=== PATIENT | female | born 1990 | race African-American/Black ===

== ENCOUNTER 2020-02-04 11:09 | Emergency (ER) | payer OTHER ==
--- OUTSIDE RECORDS SUMMARY | 2020-02-04 11:11 | XMS REPORT | Clinical Summary ---
:1990 Author Organization [facility] Distr ict Address [address] [place] [address] Care Team Providers Name Role Phone Unavailable Primary Care Provider Unavailable Allergies Not on File Medications Not on file Active Problems Problem Noted Date Foot pain, left Social History Tobacco Use Types Packs/Day Years Used Date Never Assessed Sex Assigned at Date Recorded Not on file Last Filed Vital Signs Not on file Plan of Treatment Health Maintenance Due Date Last Done Comments Pap Cervical Cancer Scrn 2013 IMM Influenza Seasonal Nov to April (>/= 19 yrs) 11/19/2019 Results Not on fileafter 02/03/2019 Insurance Payer Benefit Plan / Subscriber ID Effective Dates Phone Addre ss Type Group [employer] SELF-PAY [id number] 2017-Prese [phone] SHIRA SELF-PAY UNSCREENED nt [address] [place] [address]
--- OUTSIDE RECORDS SUMMARY | 2020-02-04 11:11 | XMS REPORT | Continuity of Care Document ---
:1990 Author Organization [facility] t Address [address] [place] [place] [address] Care Team Providers Name Role Phone Maurizio Ugalde Attending Clinician Problems Condition Condition Condition Status Onset Resolution Last Treating Co mments Source Name Details Category Date Date Treatment Clinician Date Foot pain, Foot pain, Disease Active H arris left left Health Allergies, Adverse Reactions, Alerts This patient has no known allergies or adverse reactions. Social History Social Habit Start Date Stop Date Quantity Comments Source Sex Assigned At [facility] Medications This patient has no known medications. Procedures This patient has no known procedures. Plan of Care Planned Activity Planned Date Details Comments Source Future Scheduled Test 2019-11-19 00:00:00 IMM Influenza [facility] Seasonal Nov to April (>/= 19 yrs) [code = IMM Influenza Seasonal Nov to April (>/= 19 yrs)] Future Scheduled Test 2013 00:00:00 Screening for [facility] malignant neoplasm of cervix (procedure) [code = 276296153] Encounters Start End Encounter Admission Attending Care Care Encounter Source Date/Time Date/Time Type Type Clinicians Facility Department ID 2018-09-27 2018-09-27 Emergency Sree CAVINCE [id number] 15:27:09 17:14:00 Enoc Cruz [id number] [place] [id number] [place] [id number] 2017-10-31 2017-10-31 Outpatient [facility] [id number] [place] 15:00:36 15:00:36 Health 2017-10-31 2017-10-31 Emergency [facility] [id number] [place] 10:36:00 10:36:00 Health Results This patient has no known results.
[2020-02-04 11:44] LABS: Urine Specific Gravity 1.025 (1.005-1.030)
[2020-02-04 11:44] LABS: Urine Blood NEGATIVE (NEG); Urine Glucose NEGATIVE (NEG); Urine Protein 1+ (NEG); Urine Specific Gravity 1.025 (1.005-1.030)
[2020-02-04] MEDS ORDERED: ONDANSETRON 4 MG/2 ML VIAL ONE (12:20)
[2020-02-04] MEDS ORDERED: NA CHLORIDE 0.9% 1,000 ML ONE ×2 (12:20→13:54)
[2020-02-04] MEDS ORDERED: MORPHINE 4 MG/ML SYR ONE ×2 (12:20→13:54)
[2020-02-04 12:24] LABS: Urine Bacteria >50 /HPF (<20)
[2020-02-04 12:25] LABS: Urine Mucus HEAVY /HPF (NONE SEEN)
[2020-02-04 12:33] LABS: Absolute Lymphocytes (CBC) 2.6 K/uL (0.7-4.9); Basophils % 0.7 % (0-1.3); Hematocrit 48.4 % (36.0-45.0); Lymphocytes % 20.6 % (15.3-44.8); MPV 9.3 fL (7.6-11.3); RBC Red Blood Cell Count 5.23 M/uL (3.86-4.86)
[2020-02-04 13:09] LABS: Albumin 3.6 g/dL (3.4-5.0); Bilirubin Direct 0.1 mg/dL (0-0.2); Bilirubin Total 0.4 mg/dL (0.2-1.0); Protein, Total 7.9 g/dL (6.4-8.2)
[2020-02-04 13:11] LABS: Potassium 2.9 mmol/L (3.5-5.1)
--- NOTE | 2020-02-04 13:42 | RAD REPORT ---
EXAM DESCRIPTION: CT - Abdomen Pelvis W Contrast - 02/04/2020 1:25 pm CLINICAL HISTORY: ABD PAINin the epigastric region for 3 days, history of miscarriage 1 month earlie r COMPARISON: No comparisons TECHNIQUE: Biphasic, helical CT imaging of the abdomen and pelvis was performed following 100 ml non -ionic IV contrast. No oral contrast administered. All CT scans are performed using dose optimization technique as appropriate and may include automated exposure control or mA/KV adjustment according to patient size. FINDINGS: No suspicious findings in the lung bases. No cardiomegaly or pericardial effusion. The liver, spleen, and pancreas show no suspicious findings. Gallbladder and biliary tree are also wi thout suspicious finding. Symmetric renal function is seen with no hydronephrosis or suspicious renal mass. No pyelonephritis o r acute parenchymal process. Bladder is fully contracted limiting assessment. No uterine abnormality seen. No suspicious ovarian process identifiable. No adrenal abnormalities. Patient has a dilated fluid-filled stomach. The fundus and body of the stomach show no mass, edema or ulceration evident. Gastric antrum murguia are thickened and edematous. Duodenal bulb does not appear to be involved. More distally the duodenum is unremarkable. Small bowel loops are not dilated. No sydni les colon process seen. The appendix is normal. No free air or pneumatosis. Trace free fluid in the dependent portion of the pelvis within physiolo gic limits. No hernia, mass or bulky lymphadenopathy. No suspicious bony findings. IMPRESSION: Wall thickening and edema of the gastric antrum with the stomach dilated and fluid fille d. No obstructing mass seen. This is most likely gastric antritis. Duodenum does not appear to be involv ed. A focal gastric antrum ulceration is not identifiable. No pancreatic, gallbladder or biliary tree abnormality.
[2020-02-04] MEDS ORDERED: KCL 20 MEQ/100 mL IVPB 20 MEQ/100 ML BAG IV ONE (14:02)
[2020-02-04] MEDS ORDERED: PANTOPRAZOLE 40 MG INJ ONE (14:43)
[2020-02-04] MEDS ORDERED: LIDOCAINE VISCOUS 2% SOLN 15 ML UDC ONE (16:09)
[2020-02-04] MEDS ORDERED: MAGNES/ALUMIN/SIMET 30ML UCUP ONE (16:09)
--- NOTE | 2020-02-04 17:00 | EDPHYS ---
Physician Documentation [facility] Name: Nia Wills Age: 29 yrs Sex: Female : 1990 Arrival Date: 02/04/2020 Time: 11:10 Bed 2 Private MD: ED Physician Les Barragan HPI: 02/03 16:15 This 29 yrs old Black Female presents to ER via Ambulatory with complaints of Abdominal kdr Pain. 16:15 The patient presents with abdominal pain in the epigastric area, in the upper abdomen. kdr 16:17 Onset: The symptoms/episode began/occurred gradually, 3 day(s) ago. The symptoms do not kdr radiate. Associated signs and symptoms: Pertinent positives: nausea and vomiting, Pertinent negatives: constipation, diarrhea, dysuria, fever, headache, hematuria, palpitations, shortness of breath, vaginal discharge. The symptoms are described as achy, constant, crampy, sharp, steady. Modifying factors: The symptoms are alleviated by nothing, the symptoms are aggravated by drinking, food. Severity of pain: At its worst the pain was incapacitating in the emergency department the pain is unchanged. The patient has not experienced similar symptoms in the past. The patient has not recently seen a physician. The patient has, per her friend, trying to get off of synthetic marijuana without success. Now she is having persistent and relentless. 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 - Social history:: Smoking status: Patient reports the use of cigarette tobacco products, smokes one-half pack cigarettes per day. ROS: 17:51 Constitutional: Negative for fever, chills, and weight loss, Eyes: Negative for injury, kdr pain, redness, and discharge, Neck: Negative for injury, pain, and swelling, Cardiovascular: Negative for chest pain, palpitations, and edema, Respiratory: Negative for shortness of breath, cough, wheezing, and pleuritic chest pain, Back: Negative for injury and pain, : Negative for injury, bleeding, discharge, and swelling, MS/Extremity: Negative for injury and deformity, Skin: Negative for injury, rash, and discoloration, Neuro: Negative for headache, weakness, numbness, tingling, and seizure activity. Psych: Negative for depression, anxiety, suicide ideation, homicidal ideation, and hallucinations, Allergy/Immunology: Negative for hives, rash, and allergies, Endocrine: Negative for neck swelling, polydipsia, polyuria, polyphagia, and marked weight changes, Hematologic/Lymphatic: Negative for swollen nodes, abnormal bleeding, and unusual bruising. 17:51 Abdomen/GI: Positive for abdominal pain. Exam: 02/04 09:16 Constitutional: This is a well developed, well nourished patient who is awake, alert, kdr and in moderate distress. Head/Face: Normocephalic, atraumatic. Eyes: Pupils equal round and reactive to light, extra-ocular motions intact. Lids and lashes normal. Conjunctiva and sclera are non-icteric and not injected. Cornea within normal limits. Periorbital areas with no swelling, redness, or edema. Neck: Trachea midline, no thyromegaly or masses palpated, and no cervical lymphadenopathy. Supple, full range of motion without nuchal rigidity, or vertebral point tenderness. No Meningismus. Chest/axilla: Normal chest wall appearance and motion. Nontender with no deformity. No lesions are appreciated. Cardiovascular: Regular rate and rhythm with a normal S1 and S2. No gallops, murmurs, or rubs. Normal PMI, no JVD. No pulse deficits. Respiratory: Lungs have equal breath sounds bilaterally, clear to auscultation and percussion. No rales, rhonchi or wheezes noted. No increased work of breathing, no retractions or nasal flaring. Back: No spinal tenderness. No costovertebral tenderness. Full range of motion. Skin: Warm, dry with normal turgor. Normal color with no rashes, no lesions, and no evidence of cellulitis. MS/ Extremity: Pulses equal, no cyanosis. Neurovascular intact. Full, normal range of motion. Neuro: Awake and alert, GCS 15, oriented to person, place, time, and situation. Cranial nerves II-XII grossly intact. Motor strength 5/5 in all extremities. Sensory grossly intact. Cerebellar exam normal. Normal gait. Psych: Awake, alert, with orientation to person, place and time. Behavior, mood, and affect are within normal limits. Abdomen/GI: Inspection: Vital Signs: 02/03 11:20 BP 135 / 100; Pulse 65; Resp 17; Temp 98.2; Pulse Ox 100% ; Pain 10/10; jl7 12:20 BP 116 / 74; Pulse 50; Resp 19; Pulse Ox 100% ; rb3 13:18 BP 120 / 78; Pulse 53; Resp 17; Pulse Ox 100% ; rb3 14:18 BP 150 / 75; Pulse 47; Resp 16; Pulse Ox 100% ; bp 15:10 BP 123 / 65; Pulse 46; Resp 15; Pulse Ox 100% ; rb3 16:00 BP 126 / 88; Pulse 49; Resp 15; Pulse Ox 100% ; rb3 16:53 BP 128 / 84; Pulse 45; Resp 17; Pulse Ox 99% ; bp MDM: 17:00 Patient medically screened. kdr 02/04 09:21 Data reviewed: vital signs, nurses notes, lab test result(s), radiologic studies. kdr Counseling: I had a detailed discussion with the patient and/or guardian regarding: the historical points, exam findings, and any diagnostic results supporting the discharge/admit diagnosis, lab results, radiology results, the need for outpatient follow up. 02/03 11:35 Order name: Urine Dipstick--Ancillary (enter results); Complete Time: 13:13 bd 02/03 11:37 Order name: Urine --Ancillary (enter results); Complete Time: 13:13 bd 02/03 11:59 Order name: Basic Metabolic Panel; Complete Time: 13:13 bp 02/03 11:59 Order name: CBC with Diff; Complete Time: 13:13 bp 02/03 11:59 Order name: Hepatic Function; Complete Time: 13:13 bp 02/03 11:59 Order name: Lipase; Complete Time: 13:13 bp 02/03 12:00 Order name: Urine Culture bp 02/03 12:00 Order name: Urine Microscopic Only; Complete Time: 13:13 bp 02/03 12:10 Order name: CT Abd/Pelvis - IV Contrast Only; Complete Time: 13:45 kdr 02/03 11:59 Order name: IV Saline Lock; Complete Time: 12:16 bp 02/03 11:59 Order name: Labs collected and sent; Complete Time: 12: bp 02/03 15:09 Order name: PO challenge; Complete Time: 15:21 kdr Administered Medications: 02/03 12:05 Drug: morphine 4 mg Route: IVP; Site: right antecubital; bp 12:20 Follow up: Response: No adverse reaction; Pain is decreased rb3 12:10 Drug: NS 0.9% 1000 ml Route: IV; Rate: 1 bolus; Site: right antecubital; bp 17:18 Follow up: IV Status: Completed infusion; IV Intake: 1000ml bp 12:10 Drug: Zofran (Ondansetron) 4 mg Route: IVP; Site: right antecubital; bp 12:20 Follow up: Response: No adverse reaction; Nausea is decreased rb3 13:30 Drug: Potassium Chloride 20 mEq Route: IV; Rate: calculated rate; Site: right bp antecubital; 17:18 Follow up: IV Status: Completed infusion; IV Intake: 100ml bp 13:45 Drug: morphine 4 mg Route: IVP; Site: right antecubital; bp 14:18 Follow up: Response: No adverse reaction; Pain is decreased bp 14:30 Drug: ProTONIX 40 mg Route: IVP; Site: right antecubital; bp 15:21 Follow up: Response: No adverse reaction bp 15:58 Drug: GI Cocktail without - (Maalox Suspension 30 ml, Lidocaine Liquid 2 % 15 rb3 ml) Route: PO; 17:17 Follow up: Response: Pain is decreased bp Disposition: 02/04/20 17:00 Discharged to Home. Impression: Abdominal and pelvic pain, Gastric Anteritis. - Condition is Stable. - Prescriptions for Bentyl 20 mg Oral Tablet - take 1 tablet by ORAL route every 6 hours As needed; 20 tablet. Pepcid 20 mg Oral Tablet - take 1 tablet by ORAL route every 12 hours for 5 days; 10 tablet. Tramadol 50 mg Oral Tablet - take 1 tablet by ORAL route every 8 hours as needed; 12 tablet. - Medication Reconciliation Form, Thank You Letter, Prescription Opioid Use form. - Follow up: Private Physician; When: 2 - 3 days; Reason: If symptoms return, Further diagnostic work-up, Recheck today's complaints, Continuance of care, Re-evaluation by your physician. - Problem is an ongoing problem. - Symptoms have improved. Signatures: Dispatcher [employer] EDLes Cordero, MD MD kdr Carl Willard RN RN jl7 Nolberto Arango, RN RN bp Eduarda Meeks, RN RN rb3 Corrections: (The following items were deleted from the chart) 17:18 17:00 02/04/2020 17:00 Discharged to Home. Impression: Abdominal and pelvic pain; bp Gastric Anteritis. Condition is Stable. Forms are Medication Reconciliation Form, Thank You Letter, Antibiotic Education, Prescription Opioid Use. Follow up: Private Physician; When: 2 - 3 days; Reason: If symptoms return, Further diagnostic work-up, Recheck today's complaints, Continuance of care, Re-evaluation by your physician. Problem is an ongoing problem. Symptoms have improved. kdr
--- NOTE | 2020-02-04 17:00 | ER ---
Nurse's Notes [facility] Name: Nia Wills Age: 29 yrs Sex: Female : 1990 Arrival Date: 02/04/2020 Time: 11:10 Bed 2 Private MD: Diagnosis: Abdominal and pelvic pain;Gastric Anteritis Presentation: 02/03 11:20 Chief complaint: Patient states: Epigastric [pain since x3 days, worse this morning, jl7 N/V/D x 3 days, reports miscarriage about a month ago and not sure if this is related. Coronavirus screen: Client denies travel out of the [place] in the last 14 days. diarrhea, nausea, vomiting. Client presents with at least one sign or symptom that may indicate coronavirus-19. Standard/surgical mask placed on the client. Provider contacted for isolation considerations. Ebola Screen: No symptoms or risks identified at this time. Initial Sepsis Screen: Does the patient meet any 2 criteria? No. Patient's initial sepsis screen is negative. Does the patient have a suspected source of infection? No. Patient's initial sepsis screen is negative. Risk Assessment: Do you want to hurt yourself or someone else? Patient reports no desire to harm self or others. Onset of symptoms was February 02, 2020. Care prior to arrival: None. 11:20 Method Of Arrival: Ambulatory [facility] 11:20 Acuity: FERNANDO 3 jl7 Triage Assessment: 11:20 General: Appears distressed, uncomfortable, Behavior is cooperative, appropriate for bp age, anxious. Pain: Complains of pain in epigastric area. EENT: No deficits noted. Neuro: No deficits noted. Cardiovascular: No deficits noted. Respiratory: No deficits noted. GI: Abdomen is non-distended. : No signs and/or symptoms were reported regarding the genitourinary system. Derm: No deficits noted. Musculoskeletal: No deficits noted. 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 - Social history:: Smoking status: Patient reports the use of cigarette tobacco products, smokes one-half pack cigarettes per day. Screenin:30 Abuse screen: Denies threats or abuse. Denies injuries from another. Nutritional bp screening: No deficits noted. Tuberculosis screening: No symptoms or risk factors identified. Fall Risk None identified. Assessment: 11:20 General: SEE TRIAGE NOTE. bp 12:08 Reassessment: Pt. is vomiting, restless, and crying due to pain. Dr. Barragan notified. rb3 13:10 Reassessment: Patient appears in no apparent distress at this time. Patient and/or rb3 family updated on plan of care and expected duration. Pain level reassessed. Patient is alert, oriented x 3, equal unlabored respirations, skin warm/dry/pink. 14:19 Reassessment: Patient appears in no apparent distress at this time. No changes from bp previously documented assessment. Patient and/or family updated on plan of care and expected duration. Pain level reassessed. ALL CURRENT ORDERS COMPLETED. 15:10 Reassessment: Patient appears in no apparent distress at this time. Pt resting with rb3 eyes closed, respirations even, unlabored. 15:25 Reassessment: Pt. did not vomit after drinking the water for the PO challenge. rb3 15:55 Reassessment: Pt. reports that the water made her stomach hurt after she drank it. Dr. richi Barragan notified. 16:36 Reassessment: Patient appears in no apparent distress at this time. Patient and/or rb3 family updated on plan of care and expected duration. Pain level reassessed. Patient is alert, oriented x 3, equal unlabored respirations, skin warm/dry/pink. 16:53 Reassessment: Patient appears in no apparent distress at this time. Patient and/or bp family updated on plan of care and expected duration. Pain level reassessed. Patient is alert, oriented x 3, equal unlabored respirations, skin warm/dry/pink. PT SLEEPING, NO FURTHER EMESIS. 17:16 Reassessment: PT D/C HOME AMBULATORY WITH FAMILY, DX WITH GASTRIC ANTERITIS. bp Vital Signs: 11:20 BP 135 / 100; Pulse 65; Resp 17; Temp 98.2; Pulse Ox 100% ; Pain 10/10; jl7 12:20 BP 116 / 74; Pulse 50; Resp 19; Pulse Ox 100% ; rb3 13:18 BP 120 / 78; Pulse 53; Resp 17; Pulse Ox 100% ; rb3 14:18 BP 150 / 75; Pulse 47; Resp 16; Pulse Ox 100% ; bp 15:10 BP 123 / 65; Pulse 46; Resp 15; Pulse Ox 100% ; rb3 16:00 BP 126 / 88; Pulse 49; Resp 15; Pulse Ox 100% ; rb3 16:53 BP 128 / 84; Pulse 45; Resp 17; Pulse Ox 99% ; bp ED Course: 11:10 Patient arrived in ED. ag5 11:14 Les Barragan MD is Attending Physician. kdr 11:20 Arm band placed on right wrist. jl7 11:22 Triage completed. jl7 11:25 Nolberto Arango, SOPHIE is Primary Nurse. bp 11:30 Patient has correct armband on for positive identification. Bed in low position. Call bp light in reach. Side rails up X2. Adult w/ patient. 11:36 Urine collected: clean catch specimen, tea colored. 5 11:37 Urine Dipstick--Ancillary (enter results) Sent. 5 12:11 Inserted saline lock: 20 gauge in right antecubital area, using aseptic technique. rb3 Blood collected. 13:25 CT Abd/Pelvis - IV Contrast Only In Process Unspecified. EDMS 17:16 No provider procedures requiring assistance completed. IV discontinued, intact, bp bleeding controlled, No redness/swelling at site. Pressure dressing applied. Administered Medications: 12:05 Drug: morphine 4 mg Route: IVP; Site: right antecubital; bp 12:20 Follow up: Response: No adverse reaction; Pain is decreased rb3 12:10 Drug: NS 0.9% 1000 ml Route: IV; Rate: 1 bolus; Site: right antecubital; bp 17:18 Follow up: IV Status: Completed infusion; IV Intake: 1000ml bp 12:10 Drug: Zofran (Ondansetron) 4 mg Route: IVP; Site: right antecubital; bp 12:20 Follow up: Response: No adverse reaction; Nausea is decreased rb3 13:30 Drug: Potassium Chloride 20 mEq Route: IV; Rate: calculated rate; Site: right bp antecubital; 17:18 Follow up: IV Status: Completed infusion; IV Intake: 100ml bp 13:45 Drug: morphine 4 mg Route: IVP; Site: right antecubital; bp 14:18 Follow up: Response: No adverse reaction; Pain is decreased bp 14:30 Drug: ProTONIX 40 mg Route: IVP; Site: right antecubital; bp 15:21 Follow up: Response: No adverse reaction bp 15:58 Drug: GI Cocktail without - (Maalox Suspension 30 ml, Lidocaine Liquid 2 % 15 rb3 ml) Route: PO; 17:17 Follow up: Response: Pain is decreased bp Intake: 17:18 IV: 100ml; Total: 100ml. bp 17:18 IV: 1000ml; Total: 1100ml. bp Outcome: 17:00 Discharge ordered by . kdr 17:16 Discharged to home ambulatory, with family. bp 17:16 Condition: stable 17:16 Discharge instructions given to patient, Instructed on discharge instructions, follow up and referral plans. medication usage, Demonstrated understanding of instructions, follow-up care, medications, Prescriptions given X 3. 17:18 Patient left the ED. bp Signatures: Dispatcher [employer] EDMS Les Barragan MD MD kdr Martinez, Maria 5 Carl Willard, RN RN jl7 Nolberto Arango, SOPHIE RN bp Tran Zepeda 5 Eduarda Meeks, RN RN rb3
[2020-02-05 12:31] VITALS: TEMP 98.2
[2020-02-05 12:39] VITALS: BP 128/84; O2SAT 99
== END 2020-02-04 17:18 | disposition home or self-care (01) ==
LOC: ER 11:09
DX: K29.60 Other gastritis without bleeding (principal); F17.210 Nicotine dependence, cigarettes, uncomplicated; Z88.2 Allergy status to sulfonamides
CPT/HCPCS: 96365; 96361; 87088; 85025; 87086; 80048; 36415; 81025; 80076; 83690; 74177; 96375; 99284; 96366; Q9967; C9113; J3480; J7030 ×2; J2405; 81003; 81015

== ENCOUNTER 2020-04-10 03:41 | Emergency (ER) | payer OTHER ==
--- OUTSIDE RECORDS SUMMARY | 2020-04-10 03:46 | XMS REPORT | Clinical Summary ---
:1990 Author Organization [facility] Distr ict Address [address] [place] [address] Care Team Providers Name Role Phone Unavailable [...] 21 yrs) 11/19/2019 Results Not on fileafter 04/10/2019 Insurance Payer Benefit Plan / Subscriber ID Effective Dates Phone Addre ss Type Group [employer] SELF-PAY [id number] 2017-Prese [phone] [address] SELF-PAY UNSCREENED nt [address] [place] [address]
--- OUTSIDE RECORDS SUMMARY | 2020-04-10 03:46 | XMS REPORT | Continuity of Care Document ---
:1990 Author Organization [facility] t Address [address] [place] [address] Care Team Providers Name Role Phone Maurizio [...] Date Quantity Comments Source Sex Assigned At [facility] Medications This patient has no known medications. Procedures This patient has no known procedures. Plan of Care Planned Activity Planned Date Details Comments Source Future Scheduled Test 2019-11-19 00:00:00 IMM Influenza [facility] Seasonal Nov to April (>/= 19 yrs) [code = IMM Influenza Seasonal Nov to April (>/= 19 yrs)] Future Scheduled Test 2013 00:00:00 Screening for [facility] malignant neoplasm of cervix (procedure) [code = [id number]] Encounters Start End Encounter Admission Attending Care Care Encounter Source Date/Time Date/Time Type Type Clinicians Facility Department ID 2020-02-27 Inpatient E [facility] [id number] [facility] 02:20:00 2020-03-08 2020-03-08 Outpatient [facility] [id number] [facility] 05:22:00 05:22:00 2020-02-26 2020-02-26 Outpatient [facility] [id number] [facility] 12:55:00 12:55:00 2018-09-27 2018-09-27 Emergency [facility] [id number] 15:27:09 17:14:00 Enoc Cruz [id number] [place] [id number] [place] [id number] 2017-10-31 2017-10-31 Outpatient [facility] [id number] [place] 15:00:36 15:00:36 Health 2017-10-31 2017-10-31 Emergency [facility] [id number] [place] 10:36:00 10:36:00 Health Results This patient has no known results.
--- NOTE | 2020-04-10 04:13 | ER ---
Nurse's Notes [facility] Name: Nia Wills Age: 29 yrs Sex: Female : 1990 Arrival Date: 04/10/2020 Time: 03:46 Bed Waiting Private MD: Diagnosis: ED Course: 04/10 03:46 Patient arrived in ED. cf2 04:00 Patient's name was called from ER lobby. Unable to locate patient. Will disposition as lp1 left without being seen by a provider. Administered Medications: No medications were administered Outcome: 04:12 Patient left the ED. lp1 Signatures: Zeina Daly RN RN lp1 Christiano Sims cf2 Corrections: (The following items were deleted from the chart) 04:10 04:00 Patient's name was called from ER lobby. Unable to locate patient. Will lp1 disposition as left without being seen by a provider. lp1
== END 2020-04-10 04:12 | disposition left against medical advice (07) ==
LOC: ER 03:41
DX: Z02.9 Encounter for administrative examinations, unspecified (principal)

== ENCOUNTER 2020-06-19 16:26 | Emergency (ER) | payer OTHER ==
--- OUTSIDE RECORDS SUMMARY | 2020-06-19 16:29 | XMS REPORT | Continuity of Care Document ---
:1990 Author Organization [facility] t Address [address] [place] [address] Care Team Providers Name Role Phone VINCENT Attending Clinician Unavailable ADRIAN Attending Clinician Unavailable Maurizio Ugalde Attending Clinician Problems Condition Condition Condition Status Onset Resolution Last Treating Co mments Source Name Details Category Date Date Treatment Clinician Date Ankle Ankle Problem Active Univers pain, pain, ity of right right [place] Physici ans Personal Personal Problem Resolve Univ ers history of history of d it y of asthma asthma [place] Physici ans Chronic Chronic Problem Active Univers Infection Infection ity of Of Of [place] Amputation Amputation Ph ysici Stump Stump ans Pain, Pain, Problem Active Univers joint, joint, ity of ankle [place] ankle [place] foot foot Physici ans Bone spur Bone spur Problem Active Uni vers ity of [place] Physici ans Complicati Complicati Problem Active U nivers ons of ons of [place] of [place]putation [place] stump stump Physici ans Foot pain, Foot pain, Disease Active H arris left left Health Allergies, Adverse Reactions, Alerts This patient has no known allergies or adverse reactions. Social History Social Habit Start Date Stop Date Quantity Comments Source Sex Assigned At Tao ris [facility] Medications Ordered Filled Start Stop Current Ordering Indication Dosage Frequency Signature Comments Components Source Medication Medication Date Date Medication? Clinician (SIG) Name Name Naproxen Naproxen Yes CINDI 1 Q0.5D TAKE 1 Univers 500 MG Oral 500 MG Oral 3-17 CAMPBELL TABLET ity of Tablet Tablet 00:00: M.D. TWICE [place] 00 DAILY PRN Physici for pain ans Gabapentin Gabapentin Yes SIENA Q0.3333D TAKE 1 Univers 300 MG Oral 300 MG Oral 2-25 VINCENT CAPSULE 3 ity of Capsule Capsule 00:00: P.A. TIMES [place] 00 DAILY. Physici ans Cephalexin Cephalexin Yes MELITON Q0.3333D TAKE ONE Univers 500 MG Oral 500 MG Oral 9-25 KERLINE CAPSULE BY ity of Capsule Capsule 00:00: M.D. MOUTH [place] 00 THREE Physici TIMES ans DAILY FOR 10 DAYS Ritalin Ritalin Yes Univers TABS TABS 5-22 ity of 00:00: [place] 00 Physici ans Zoloft TABS Zoloft TABS Yes Univers 5-22 ity of 00:00: [place] 00 Physici ans Procedures Procedure Date / Time Performed Performing Clinician [facility] e [U] XRAY ANKLE MIN 3 2020-05-03 00:00:00 Univers [facility]y of [place] VWS RIGHT [id number] Physicians [U] XRAY TIBIA FIBULA 2020-05-03 00:00:00 [facility] [address]5431 Physicians Post Op Promis 29 2020-04-15 00:00:00 [facility] Survey Physicians Plan of Care Planned Activity Planned Date Details Comments Source Future Scheduled Test 2020-11-18 00:00:[address] [facility] Seasonal Nov to April (>/= 19 yrs) [code = IMM Influenza Seasonal Oct to April (>/= 19 yrs)] Future Scheduled Test 2013 00:00:[address] [facility] malignant neoplasm of cervix (procedure) [code = 133117032] Future Scheduled Test 2008 00:00:00 COVID-19 Vaccine (1) [facility] [code = COVID-19 Vaccine (1)] Encounters Start End Encounter Admission Attending Care Care Encounter Source Date/Time Date/Time Type Type Clinicians Facility Department ID 2020-02-27 Inpatient E [facility] [id number] [facility] H 02:20:00 2020-04-14 2020-04-14 [facility] [id number] Univers 09:30:00 09:30:00 t; SIENA, Trauma ity of [place] KAUR [facility] 2020-03-17 2020-03-17 Appointmen SANTOSH CAMPBELL [id number] Univers 08:45:00 08:45:00 t; CINDI CAMPBELL it y of [place], M.D. [place] M.D. Physici ans 2020-03-08 2020-03-08 Appointmen SANTOSH CAMPBELL [id number] Univers 07:30:00 07:30:00 t; CINDI CAMPBELL it y of [place], M.D. [place] M.D. Physici ans 2020-03-08 2020-03-08 Outpatient [facility] [id number] MH 05:22:00 05:22:00 2020-02-27 2020-02-27 Appointmen SANTOSH CAMPBELL [id number] Univers 07:30:00 07:30:00 t; CINDI CAMPBLEL it y of [place], M.D. [place] M.D. Physici ans 2020-02-26 2020-02-26 Outpatient MH MAGDY [id number] [facility] 12:55:00 12:55:00 2018-09-27 2018-09-27 Emergency [facility] [id number] 15:27:09 17:14:00 Enoc Cruz [id number] [place] [id number] [place] [id number] 2017-10-31 2017-10-31 Outpatient [facility] [id number] [place] 15:00:36 15:00:36 Health 2017-10-31 2017-10-31 Emergency [facility] [id number] [place] 10:36:00 10:36:00 Health Results Test Description Test Time Test Comments Results Result Sour e Comments [U] XRAY TIBIA 2020-04-14 Images University of [place] 2 [place] LEFT 11:01:00 [place] [id number] reported on Physicians this accession number. [U] XRAY ANKLE 2020-04-14 Images University of MIN 3 VWS RIGHT 10:19:00 acquired, not [place] [id number] reported on Physicians this accession number.
--- NOTE | 2020-06-19 17:07 | ER ---
Nurse's Notes [facility] Name: Nia Wills Age: 30 yrs Sex: Female : 1990 Arrival Date: 06/19/2020 Time: 16:27 Bed Waiting Private MD: Diagnosis: Presentation: 06/19 17:06 Note Eloped at 1645 per Zahra Registration. ca1 ED Course: 16:27 Patient arrived in ED. as Administered Medications: No medications were administered Outcome: 17:06 Patient left the ED. ca1 Signatures: Sangeetha Velez Cheryl, RN RN ca1
== END 2020-06-19 17:06 | disposition left against medical advice (07) ==
LOC: ER 16:26
DX: R69 Illness, unspecified (principal); Z53.21 Procedure and treatment not carried out due to patient leaving prior to being seen by health care provider

== ENCOUNTER 2020-08-06 11:44 | Emergency (ER) | payer OTHER ==
--- OUTSIDE RECORDS SUMMARY | 2020-08-06 11:49 | XMS REPORT | Continuity of Care Document ---
:1990 Author Organization [facility] t Address [address] [place] [address] Care Team Providers Name Role Phone Charlene Ceron MD Attending Clinician VINCENT Attending Clinician Unavailable ADRIAN Attending Clinician [...] spur Problem Active Uni vers [facility]y of [place] Physici ans Complicati Complicati Problem Active U [...] Clinician (SIG) Name Name Naproxen Naproxen Yes ICNDI 1 Q0.5D TAKE 1 Univers 500 MG [...] Procedure Date / Time Performed Performing Clinician [facility] e [U] XRAY ANKLE MIN 3 2020-05-03 00:00:00 Univers [facility] of [place] VWS RIGHT [address]62 Physicians [U] XRAY TIBIA FIBULA 2020-05-03 00:00:00 Univer sity [facility] 2 VWS LEFT 77163 Physicians Post Op Promis 29 2020-04-15 00:00:00 [facility] Survey Physicians Plan of Care Planned Activity Planned Date Details Comments Source Future Scheduled Test 2020-11-18 00:00:00 IMM Influenza [facility] Seasonal Oct to April (>/= 19 yrs) [code = IMM Influenza Seasonal Oct to April (>/= 19 yrs)] Future Scheduled Test 2013 00:00:00 Screening for [facility] malignant neoplasm of cervix (procedure) [code = 353795442] Future Scheduled Test 2004 00:00:00 COVID-19 Vaccine (1) [facility] [code = COVID-19 Vaccine (1)] Encounters Start End Encounter Admission Attending Care Care Encounter Source Date/Time Date/Time Type Type Clinicians Facility Department ID 2020-02-27 Inpatient E [facility] MED [id number] [facility] H 02:20:00 2020-06-19 2020-06-20 Emergency [facility] [id number] 20:37:00 00:12:00 No Charlene Nancy [id number] [place] [id number] [place] [id number] 2020-04-14 2020-04-14 Appointmen SANTOSH [facility] [id number] Univers 09:30:00 09:30:00 t; SIENA, Trauma ity of VINCENT P.[facility] Center 2020-03-17 2020-03-17 Appointmen SANTOSH CAMPBELL [facility] [id number] Univers 08:45:00 08:45:00 t; CINDI CAMPBELL it y of [place], M.D. [place] M.D. Physici ans 2020-03-08 2020-03-08 AppointSANTOSH Royal [id number] Univers 07:30:00 07:30:00 t; CINDI CAMPBELL it y of [place], M.D. [place] M.D. Physici ans 2020-03-08 2020-03-08 Outpatient [facility] [id number] [facility] 05:22:00 05:22:00 2020-02-27 2020-02-27 Appointmen SANTOSH CAMPBELL [facility] [id number] Univers 07:30:00 07:30:00 t; CINDI CAMPBELL it y of [place], M.D. [place] Physici ans 2020-02-26 2020-02-26 Outpatient [facility] MAGDY [id number] [facility] 12:55:00 12:55:00 2018-09-27 2018-09-27 Emergency [facility] [id number] 15:27:09 17:14:00 Enoc Cruz [id number] [place] [id number] [place] [id number] 2017-10-31 2017-10-31 Outpatient [facility] [id number] [place] 15:00:36 15:00:36 Health 2017-10-31 2017-10-31 Emergency [facility] [id number] [place] 10:36:00 10:36:00 Health Results Test Description Test Time Test Comments Results Result Sourc e Comments [U] XRAY TIBIA 2020-04-14 Images [facility] of [place] 2 VWS LEFT 11:01:00 [place] [id number] reported on Physicians this accession number. [U] XRAY ANKLE 2020-04-14 Images University of MIN 3 VWS RIGHT 10:19:00 acquired, not [place] [id number] reported on Physicians this accession number.
[2020-08-06] MEDS ORDERED: HYDROCODONE/APAP 5/325 MG TAB ONE (12:28)
--- NOTE | 2020-08-06 12:34 | RAD REPORT ---
EXAM DESCRIPTION: RAD - Ankle Right 3 View - 08/06/2020 12:20 pm CLINICAL HISTORY: Right ankle pain FINDINGS: Sideplate and screws affix the medial and lateral malleoli fractures. Oblique lucency within the distal tibia indicates that the fracture has not completely healed. Soft tissue swelling is evident. No acute fracture or dislocation seen. Lucency within the posterior calcaneus has a sclerotic border and probably is benign
--- NOTE | 2020-08-06 13:06 | EDPHYS ---
Physician Documentation [facility] Name: Nia Wills Age: 30 yrs Sex: Female : 1990 Arrival Date: 08/06/2020 Time: 11:49 Bed 20 Private MD: ED Physician Rena Ye HPI: 08/06 12:06 This 30 yrs old Black Female presents to ER via Wheelchair with complaints of Right pm1 ankle pain. 12:06 Onset: The symptoms/episode began/occurred 1 week(s) ago. Associated signs and pm1 symptoms: Pertinent negatives: fever, discharge. Modifying factors: The patient symptoms are alleviated by rest, the patient symptoms are aggravated by weight bearing. The patient has not experienced similar symptoms in the past. The patient has not recently seen a physician. Patient was carrying a window frame and then she accidentally dropped it on her right foot one week ago. Patient scratched the scab tissue on the medial aspect of her right ankle. Patient had an ankle fracture and repair in April 2020. Patient is also complaining of a callous to the medial aspect of her right heel. GRINDER LAP: 13:31 LMP 07/30/2020 zb Historical: - Allergies: 11:55 Sulfa (Sulfonamide Antibiotics); hb - PMHx: 11:55 High Blood Pressure; hb - Immunization history:: Adult Immunizations up to date. - Social history:: Smoking status: Patient denies any tobacco usage or history of. ROS: 12:06 Constitutional: Negative for fever, chills, and weight loss, Cardiovascular: Negative pm1 for chest pain, palpitations, and edema, Respiratory: Negative for shortness of breath, cough, wheezing, and pleuritic chest pain. 12:06 Neuro: Negative for headache, weakness, numbness, tingling, and seizure. 12:06 MS/extremity: Positive for abrasion, pain, of the right ankle, Negative for decreased range of motion, deformity. 12:06 Skin: Positive for abrasion(s), of the right ankle. 12:06 All other systems are negative. Exam: 12:06 Constitutional: This is a well developed, well nourished patient who is awake, alert, pm1 and in no acute distress. Head/Face: Normocephalic, atraumatic. 12:06 Cardiovascular: Rate: normal, Rhythm: regular, Pulses: no pulse deficits are appreciated. 12:06 Respiratory: Exam negative for acute changes, respiratory distress, shortness of breath. 12:06 Musculoskeletal/extremity: Extremities: grossly normal except: noted in the medial aspect of right ankle: abrasion, There is no evidence of decreased ROM. 12:06 Skin: Appearance: normal except for affected area, abscess, not appreciated, cellulitis, is not appreciated, injury, abrasion(s), small abrasion noted, of the medial aspect of right ankle, large cutaneous callous horn present to medial aspect of right heel. 12:06 Neuro: Orientation: is normal, Mentation: is normal, Motor: is normal, Sensation: is normal, no obvious gross deficits. Vital Signs: 11:53 BP 99 / 65; Pulse 102; Resp 18; Temp 98.1; Pulse Ox 98% on R/A; Pain 7/10; hb 13:30 BP 98 / 62; Pulse 84; Resp 16; Pulse Ox 100% on R/A; zb MDM: 11:57 Patient medically screened. pm1 13:01 Data reviewed: vital signs. Data interpreted: Pulse oximetry: on room air is 98 %. pm1 Interpretation: normal. 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 13:02 ED course: BLADE GROOVER aware reviewed. pm1 08/06 12:04 Order name: Ankle Right 3 View XRAY; Complete Time: 12:49 pm1 Administered Medications: 12:14 Drug: [place] (HYDROcodone-acetaminophen) 5 mg-325 mg 1 tabs {Note: RASS +0.} Route: PO; zb 13:23 Follow up: Response: No adverse reaction; Marked relief of symptoms; Pain is decreased; zb RASS: Alert and Calm (0) Disposition: 14:47 Co-signature as Attending Physician, Rena Ye MD. ma2 Disposition: 08/06/20 13:06 Discharged to Home. Impression: Abrasion, left ankle, Corns and callosities. - Condition is Stable. - Discharge Instructions: Abrasion, Corns and Calluses. - Prescriptions for Bactroban 2 % Topical Ointment - Apply to affected area 1 application by TOPICAL route every 12 hours; 30 gram. Doxycycline Hyclate 100 mg Oral Tablet - take 1 tablet by ORAL route every 12 hours; 20 tablet. Tylenol- Codeine #3 300-30 mg Oral Tablet - take 2 tablets by ORAL route every 4-6 hours As needed; 20 tablet. - Medication Reconciliation Form, Thank You Letter, Antibiotic Education, Prescription Opioid Use form. - Follow up: Emergency Department; When: As needed; Reason: Worsening of condition. Follow up: Private Physician; When: 2 - 3 days; Reason: Recheck today's complaints, Continuance of care, Re-evaluation by your physician. - Problem is new. - Symptoms have improved. Signatures: Dispatcher [employer] EDMS Richard Cary NP WET SUIT GLUER pm1 So Adair RN RN Rena Ye MD MD ma2 Maria Alejandra Ivan RN RN zb Corrections: (The following items were deleted from the chart) 13:07 13:06 08/06/2020 13:06 Discharged to Home. Impression: Corns and callosities; Abrasion, pm1 left ankle. Condition is Stable. Forms are Medication Reconciliation Form, Thank You Letter, Antibiotic Education, Prescription Opioid Use. Follow up: Emergency Department; When: As needed; Reason: Worsening of condition. Follow up: Private Physician; When: 2 - 3 days; Reason: Recheck today's complaints, Continuance of care, Re-evaluation by your physician. Problem is new. Symptoms have improved. pm1 13:31 13:07 08/06/2020 13:06 Discharged to Home. Impression: Abrasion, left ankleCorns and zb callosities. Condition is Stable. Forms are Medication Reconciliation Form, Thank You Letter, Antibiotic Education, Prescription Opioid Use. Follow up: Emergency Department; When: As needed; Reason: Worsening of condition. Follow up: Private Physician; When: 2 - 3 days; Reason: Recheck today's complaints, Continuance of care, Re-evaluation by your physician. Problem is new. Symptoms have improved. pm1
--- NOTE | 2020-08-06 13:06 | ER ---
Nurse's Notes [facility] Name: Nia Wills Age: 30 yrs Sex: Female : 1990 Arrival Date: 08/06/2020 Time: 11:49 Bed 20 Private MD: Diagnosis: Corns and callosities;Abrasion, left ankle Presentation: 08/06 11:53 Chief complaint: Right ankle pain after she dropped a window on it 1 week ago. Reports right ankle surgery in April. Coronavirus screen: At this time, the client does not indicate any symptoms associated with coronavirus-19. Ebola Screen: No symptoms or risks identified at this time. Initial Sepsis Screen: Does the patient meet any 2 criteria? No. Patient's initial sepsis screen is negative. Does the patient have a suspected source of infection? No. Patient's initial sepsis screen is negative. Risk Assessment: Do you want to hurt yourself or someone else? Patient reports no desire to harm self or others. Onset of symptoms was July 30, 2020. 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 - Social history:: Smoking status: Patient denies any tobacco usage or history of. Screenin:04 Abuse screen: Denies threats or abuse. Denies injuries from another. Nutritional zb screening: No deficits noted. Tuberculosis screening: No symptoms or risk factors identified. Fall Risk No fall in past 12 months (0 pts). Secondary diagnosis (15 points) impaired mobility, No IV (0 pts). Ambulatory Aid- Crutches/Cane/Walker (15 pts). Gait- Normal/Bed Rest/Wheelchair (0 pts) Mental Status- Oriented to own ability (0 pts). Total Ge Fall Scale indicates Low Risk Score (25-44 pts). Fall prevention measures have been instituted. Side Rails Up X 2 Placed close to Nursing Station Frequent Obs/Assesments occuring Family Present and informed to notify staff if they need to leave bedside As available Patient and Family Educated on Fall Prevention Program and strategies. Assessment: 12:24 General: Appears in no apparent distress. comfortable, Behavior is calm, cooperative, zb appropriate for age. Pain: Complains of pain in anterior aspect of right ankle and dorsum of right foot Pain currently is 8 out of 10 on a pain scale. Neuro: Level of Consciousness is awake, alert, obeys commands, Oriented to person, place, time, situation. Cardiovascular: Heart tones S1 S2 present Patient's skin is warm and dry. Respiratory: Airway is patent. Derm: Wound noted anterior aspect of right ankle and dorsum of right foot Wound is two serous sanguinous abrasion about nickel size. minimal drainage. Bruising that is dark purple, on right osborn and anterior aspect of right ankle. Musculoskeletal: Range of motion: intact in all extremities. 13:30 Reassessment: Patient appears in no apparent distress at this time. Patient and/or zb family updated on plan of care and expected duration. Pain level reassessed. Patient is alert, oriented x 3, equal unlabored respirations, skin warm/dry/pink. pain reduced 4/10. patient wheeled out by SO Patient states feeling better. Patient states symptoms have improved. Vital Signs: 11:53 BP 99 / 65; Pulse 102; Resp 18; Temp 98.1; Pulse Ox 98% on R/A; Pain 7/10; hb 13:30 BP 98 / 62; Pulse 84; Resp 16; Pulse Ox 100% on R/A; zb ED Course: 11:49 Patient arrived in ED. ds1 11:55 Triage completed. hb 11:55 Arm band placed on. hb 11:57 Richard Cary NP is PHCP. pm1 11:57 Rena Ye MD is Attending Physician. pm1 12:03 Maria Alejandra Ivan RN is Primary Nurse. zb 12:20 Ankle Right 3 View XRAY In Process Unspecified. EDMS 12:31 Patient has correct armband on for positive identification. Placed in gown. Bed in low zb position. Call light in reach. Pulse ox on. NIBP on. Door closed. Noise minimized. 13:30 No provider procedures requiring assistance completed. Patient did not have IV access zb during this emergency room visit. Administered Medications: 12:14 Drug: [place] (HYDROcodone-acetaminophen) 5 mg-325 mg 1 tabs {Note: RASS +0.} Route: PO; zb 13:23 Follow up: Response: No adverse reaction; Marked relief of symptoms; Pain is decreased; sun RASS: Alert and Calm (0) Outcome: 13:06 Discharge ordered by . pm1 13:30 Discharged to home ambulatory. zb 13:30 Condition: stable 13:30 Discharge instructions given to patient, significant other, Instructed on discharge instructions, follow up and referral plans. medication usage, Demonstrated understanding of instructions, follow-up care, medications, Prescriptions given X 3. 13:31 Patient left the ED. sun Signatures: Dispatcher [employer] EDTN Amarilys Clay ds1 Richard Cary NP FASHION ARTIST pm1 So Adair, RN Maria Alejandra Haynes RN RN zb
[2020-08-06 13:39] VITALS: TEMP 98.1
[2020-08-06 13:40] VITALS: BP 98/62; O2SAT 100
== END 2020-08-06 13:31 | disposition home or self-care (01) ==
LOC: ER 11:44
DX: L84 Corns and callosities (principal); Z88.2 Allergy status to sulfonamides
CPT/HCPCS: 99284

== ENCOUNTER 2020-08-28 12:38 | Emergency (ER) | payer OTHER ==
--- OUTSIDE RECORDS SUMMARY | 2020-08-28 12:42 | XMS REPORT | Continuity of Care Document ---
:1990 Author Organization [facility] t Address [address] [place] [address] Care Team Providers Name Role Phone Olvera Attending Clinician Osmany ADAM S Attending Clinician VINCENT Attending Clinician Unavailable ADRIAN [...] Date Quantity Comments Source Sex Assigned At [facility] Health Medications Ordered Filled Start Stop Current [...] Procedure Date / Time Performed Performing Clinician [facility] e [U] XRAY ANKLE MIN 3 2020-05-03 00:00:00 [facility] [place] VWS RIGHT [address] Physicians [U] XRAY TIBIA FIBULA 2020-05-03 00:00:00 Univer sity [facility] 2 VWS LEFT [address] Physicians Post Op Promis 29 2020-04-15 00:00:00 [facility] Survey Physicians Plan of Care Planned Activity Planned Date Details Comments Source Future Scheduled Test 2020-11-18 00:00:00 IMM Influenza [facility] Seasonal Oct to April (>/= 19 yrs) [code = IMM Influenza Seasonal Oct to April (>/= 19 yrs)] Future Scheduled Test 2013 00:00:00 Screening for [facility] malignant neoplasm of cervix (procedure) [code = 318254039] Future Scheduled Test 2004 00:00:00 COVID-19 Vaccine (1) [facility] [code = COVID-19 Vaccine (1)] Encounters Start End Encounter Admission Attending Care Care Encounter Source Date/Time Date/Time Type Type Clinicians Facility Department ID 2020-02-[address] [facility] MED [id number] [facility] H 02:20:00 2020-08-19 2020-08-19 Emergency , [facility] [id number] 20:28:00 20:51:00 Julio C Cruz [id number] [place] [id number] [place] [id number] 2020-06-19 2020-06-20 Emergency [place], [facility] [id number] 20:37:00 00:12:00 No Cruz [id number] [place] [id number] [place] [id number] 2020-04-14 2020-04-14 Appointmen SANTOSH [facility] 7 [id number] Univers 09:30:00 09:30:00 t; SIENA, Trauma ity VINCENT P.A. [facility] 2020-03-17 2020-03-17 Appointmen SANTOSH CAMPBELL [id number] Univers 08:45:00 08:45:00 t; CINDI CAMPBELL it y of [place], M.D. [place] M.D. Physici ans 2020-03-08 2020-03-08 AppointSANTOSH Royal [id number] Univers 07:30:00 07:30:00 t; CINDI CAMPBELL it y of [place], M.D. [place] M.D. Physici ans 2020-03-08 2020-03-[address] [facility] [id number] M[facility] 05:22:00 05:22:00 2020-02-27 2020-02-27 Appointmen SANTOSH CAMPBELL [id number] Univers 07:30:00 07:30:00 t; CINDI CAMPBELL it y of [place], M.D. [place] M.D. Physici ans 2020-02-26 2020-02-26 Outpatient [facility] MAGDY [id number] [facility] 12:55:00 12:55:00 2018-09-27 2018-09-27 Emergency Sree, [facility] [id number] 15:27:09 17:14:00 Enoc A [place] [id number] [place] [id number] [place] [id number] 2017-10-31 2017-10-[address] [facility] [id number] [place] 15:00:36 15:00:36 Health 2017-10-31 2017-10-31 Emergency [facility] [id number] [place] 10:36:00 10:36:00 Health Results Test Description Test Time Test Comments Results Result Sourc e Comments [U] XRAY TIBIA 2020-04-14 Images [facility] [place] 2 VWS LEFT 11:01:00 [place] [id number] reported on Physicians this accession number. [U] XRAY ANKLE 2020-04-14 Images University of MIN 3 VWS RIGHT 10:19:00 acquired, not [place] [id number] reported on Physicians this accession number.
[2020-08-28] MEDS ORDERED: HYDROCODONE/APAP 5/325 MG TAB ONE (13:55)
[2020-08-28 14:02] LABS: Absolute Lymphocytes (CBC) 2.7 K/uL (0.7-4.9); Basophils % 1.1 % (0-1.3); Hematocrit 43.6 % (36.0-45.0); Lymphocytes % 33.7 % (15.3-44.8); MPV 8.5 fL (7.6-11.3); RBC Red Blood Cell Count 4.96 M/uL (3.86-4.86)
--- NOTE | 2020-08-28 14:06 | RAD REPORT ---
EXAM DESCRIPTION: RAD - Ankle Right 3 View - 08/28/2020 1:55 pm CLINICAL HISTORY: Right ankle pain FINDINGS: Sideplate and screws affix medial and lateral malleolar fractures. No acute fracture or dislocation is seen. Marked medial soft tissue swelling. No bony destructive lesion is seen. Lucency with a sclerotic border within the posterior calcaneus may represent a cyst or lipoma. It lik ning is benign. This can be monitored on follow-up x-ray
[2020-08-28 14:14] LABS: BUN Blood Urea Nitrogen 12 mg/dL (7-18); Bicarbonate 30 mmol/L (21-32); Glucose Level 89 mg/dL (74-106); Potassium 3.9 mmol/L (3.5-5.1); Sodium Level 140 mmol/L (136-145)
--- NOTE | 2020-08-28 14:52 | EDPHYS ---
Physician Documentation [facility] Name: Nia Wills Age: 30 yrs Sex: Female : 1990 Arrival Date: 08/28/2020 Time: 12:42 Bed 23 Private MD: ED Physician Anam Cox HPI: 08/28 13:27 This 30 yrs old Black Female presents to ER via Wheelchair with complaints of Ankle pm1 Pain, Foot Pain, Post Surgical Pain. 13:27 The patient presents with pain, that is chronic. The complaints affect the right leg pm1 and right ankle. Context: Patient with chronic pain to right ankle and foot post trimalleolar fracture and surgery in February of this year. Patient reports swelling to right medial ankle. Onset: The symptoms/episode began/occurred swelling present to right ankle since fracture and surgery. Modifying factors: The symptoms are alleviated by elevating leg, the symptoms are aggravated by weight bearing. Associated signs and symptoms: Pertinent negatives calf tenderness, numbness, tingling. Treatment prior to arrival includes: no previous treatment. Severity of symptoms: in the emergency department the symptoms have improved. The patient has not recently seen a physician, Has not followed up with the surgeon. 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 - Social history:: Smoking status: Patient reports the use of cigarette tobacco products, smokes one-half pack cigarettes per day. ROS: 13:27 Constitutional: Negative for fever, chills, and weight loss, Cardiovascular: Negative pm1 for chest pain, palpitations, and edema, Respiratory: Negative for shortness of breath, cough, wheezing, and pleuritic chest pain, Abdomen/GI: Negative for abdominal pain, nausea, vomiting, diarrhea, and constipation, Back: Negative for injury and pain. 13:27 Neuro: Negative for headache, weakness, numbness, tingling, and seizure. 13:27 MS/extremity: Positive for pain, swelling, tenderness, of the medial aspect of right ankle, Negative for decreased range of motion, deformity. 13:27 Skin: Positive for swelling, of the medial aspect of right ankle, Negative for abscesses, cellulitis, ecchymosis. 13:27 All other systems are negative. Exam: 13:27 Constitutional: This is a well developed, well nourished patient who is awake, alert, pm1 and in no acute distress. Head/Face: Normocephalic, atraumatic. 13:27 Skin: Warm, dry with normal turgor. Normal color with no rashes, no lesions, and no evidence of cellulitis. 13:27 Eyes: Exam is negative for acute changes, Extraocular movements: intact throughout, Conjunctiva: no acute changes, no injection. 13:27 Cardiovascular: Exam negative for acute changes, Rate: normal, Rhythm: regular, Pulses: no pulse deficits are appreciated. 13:27 Respiratory: Exam negative for acute changes, respiratory distress, shortness of breath. 13:27 Musculoskeletal/extremity: Exam is negative for acute changes, Extremities: grossly normal except: noted in the medial aspect of right ankle: swelling, tenderness, There is no evidence of ecchymosis, cellulitis, abscess, drainage, Sensation intact. 13:27 Neuro: Exam negative for acute changes, Orientation: is normal, Mentation: is normal, Motor: is normal, moves all fours. Vital Signs: 12:59 BP 116 / 78; Pulse 82; Resp 18 S; Temp 97.6(TE); Pulse Ox 100% on R/A; Weight 65.77 kg ca1 (R); Height 5 ft. 3 in. (160.02 cm) (R); Pain 10/10; 14:02 BP 113 / 59; Pulse 89; Resp 16; Pulse Ox 99% on R/A; zb 14:54 BP 102 / 87; Pulse 65; Resp 16; Pulse Ox 100% on R/A; zb 12:59 Body Mass Index 25.69 (65.77 kg, 160.02 cm) ca1 MDM: 13:18 Patient medically screened. pm1 14:49 ED course: PMPaware reviewed. Last prescription for pain 08/06/2020. pm1 14:49 ED course: Discussed with patient the need to follow up with the orthopedic surgeon pm1 that performed the surgery and pain management. 14:49 Counseling: I had a detailed discussion with the patient and/or guardian regarding: the pm1 historical points, exam findings, and any diagnostic results supporting the discharge/admit diagnosis, lab results, radiology results, the need for outpatient follow up, to return to the emergency department if symptoms worsen or persist or if there are any questions or concerns that arise at home. 14:49 Data reviewed: vital signs. Data interpreted: Pulse oximetry: on room air is 100 %. pm1 Interpretation: normal. 08/28 13:26 Order name: CBC with Diff pm1 08/28 13:26 Order name: BMP pm1 08/28 13:25 Order name: Ankle Right 3 View XRAY; Complete Time: 14:15 pm1 08/28 13:27 Order name: CBC with Automated Diff; Complete Time: 14:15 EDMS 08/28 13:27 Order name: Basic Metabolic Panel; Complete Time: 14:15 EDMS 08/28 13:26 Order name: IV Saline Lock; Complete Time: 13:59 pm1 Administered Medications: 13:38 Drug: HYDROcodone-acetaminophen 5 mg-325 mg 1 tabs {Note: RASS +1.} Route: PO; zb 14:54 Follow up: Response: No adverse reaction; Marked relief of symptoms; Pain is decreased; zb RASS: Alert and Calm (0) Disposition Summary: 08/28/20 14:51 Discharge Ordered Location: Home pm1 Problem: new pm1 Symptoms: have improved pm1 Condition: Stable pm1 Diagnosis - Pain in right ankle and joints of right foot pm1 Followup: pm1 - With: Emergency Department - When: As needed - Reason: Worsening of condition Followup: pm1 - With: Private Physician - When: 2 - 3 days - Reason: Recheck today's complaints, Continuance of care, Re-evaluation by your physician Discharge Instructions: - Discharge Summary Sheet pm1 - Ankle Pain pm1 Forms: - Medication Reconciliation Form pm1 - Thank You Letter pm1 - Antibiotic Education pm1 - Prescription Opioid Use pm1 Prescriptions: - mupirocin 2 % Topical ointment - apply 1 application by TOPICAL route every 8 hours for 5 days; 1 tube; Refills: pm1 0, Product Selection Permitted - Doxycycline Hyclate 100 mg Oral Tablet - take 1 tablet by ORAL route every 12 hours; 20 tablet; Refills: 0, Product pm1 Selection Permitted - acetaminophen-codeine 300-15 mg Oral tablet - take 2 tablet by ORAL route every 6 hours As needed as needed; 20 tablet; pm1 Refills: 0, Product Selection Permitted Signatures: Dispatcher [employer] Richard Ellsworth, BANK CREDIT CARD COLLECTION CLERK BANK CREDIT CARD COLLECTION CLERK pm1 Praveena Walker, RN RN Maria Alejandra Loaiza RN RN sun
--- NOTE | 2020-08-28 14:52 | ER ---
Nurse's Notes [facility] Name: Nia Wills Age: 30 yrs Sex: Female : 1990 Arrival Date: 08/28/2020 Time: 12:42 Bed 23 Private MD: Diagnosis: Pain in right ankle and joints of right foot Presentation: 08/28 12:59 Chief complaint: Patient states: Had multiple R foot and R ankle surgery on the R on ca1 02/26/2020. My R inner ankle is not healing. Been Red, swollen, now it feels hot to touch. Denies fever. Coronavirus screen: Client denies travel out of the [place] in the last 14 days. At this time, the client does not indicate any symptoms associated with coronavirus-19. Ebola Screen: Patient negative for fever greater than or equal to 101.5 degrees Fahrenheit, and additional compatible Ebola Virus Disease symptoms Patient denies exposure to infectious person. Patient denies travel to an Ebola-affected area in the 21 days before illness onset. No symptoms or risks identified at this time. Initial Sepsis Screen: Does the patient meet any 2 criteria? No. Patient's initial sepsis screen is negative. Does the patient have a suspected source of infection? No. Patient's initial sepsis screen is negative. Risk Assessment: Do you want to hurt yourself or someone else? Patient reports no desire to harm self or others. Onset of symptoms was August 28, 2020. 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 - Social history:: Smoking status: Patient reports the use of cigarette tobacco products, smokes one-half pack cigarettes per day. Screenin:00 Abuse screen: Denies threats or abuse. Denies injuries from another. Nutritional zb screening: No deficits noted. Tuberculosis screening: No symptoms or risk factors identified. Fall Risk No fall in past 12 months (0 pts). Secondary diagnosis (15 points) impaired mobility, IV access (20 points). Ambulatory Aid- None/Bed Rest/Nurse Assist (0 pts). Gait- Impaired (20 pts.). Mental Status- Oriented to own ability (0 pts). Total Ge Fall Scale indicates Low Risk Score (25-44 pts). Fall prevention measures have been instituted. Side Rails Up X 2 Placed close to Nursing Station Frequent Obs/Assesments occuring Family Present and informed to notify staff if they need to leave bedside As available Patient and Family Educated on Fall Prevention Program and strategies. Assessment: 14:00 General: Appears in no apparent distress. uncomfortable, Behavior is calm, cooperative, zb appropriate for age. Pain: Complains of pain in right ankle and medial aspect of right foot Pain currently is 10 out of 10 on a pain scale. Quality of pain is described as sharp, tender, Pain began Feb 2020 Is continuous, Aggravated by increased activity, weight bearing. Neuro: Level of Consciousness is awake, alert, obeys commands, Oriented to person, place, time. Cardiovascular: Patient's skin is warm and dry. Respiratory: Airway is patent Respiratory effort is even, unlabored, Respiratory pattern is regular, symmetrical. Derm: Skin is intact, boil located on right medial side of leg. Musculoskeletal: Range of motion: intact in all extremities. 15:13 Reassessment: Patient appears in no apparent distress at this time. Patient and/or zb family updated on plan of care and expected duration. Pain level reassessed. Patient is alert, oriented x 3, equal unlabored respirations, skin warm/dry/pink. d/c instructions given. pain management list provided. right leg forrest wrapped. patient wheeled out by family. no c/o at this time. Vital Signs: 12:59 BP 116 / 78; Pulse 82; Resp 18 S; Temp 97.6(TE); Pulse Ox 100% on R/A; Weight 65.77 kg ca1 (R); Height 5 ft. 3 in. (160.02 cm) (R); Pain 10/10; 14:02 BP 113 / 59; Pulse 89; Resp 16; Pulse Ox 99% on R/A; zb 14:54 BP 102 / 87; Pulse 65; Resp 16; Pulse Ox 100% on R/A; zb 12:59 Body Mass Index 25.69 (65.77 kg, 160.02 cm) ca1 ED Course: 12:42 Patient arrived in ED. bp1 13:01 Triage completed. ca1 13:02 Arm band placed on right wrist. ca1 13:10 Richard Cary NP is PHCP. pm1 13:10 Anam Cox MD is Attending Physician. pm1 13:29 Maria Alejandra Ivan, SOPHIE is Primary Nurse. zb 13:54 Ankle Right 3 View XRAY In Process Unspecified. EDMS 14:02 Patient has correct armband on for positive identification. Pulse ox on. NIBP on. Door zb closed. Noise minimized. PO fluids given. 14:02 Inserted saline lock: 20 gauge in right antecubital area, using aseptic technique. zb Blood collected. 14:54 No provider procedures requiring assistance completed. IV discontinued, intact, zb bleeding controlled, No redness/swelling at site. Pressure dressing applied. Administered Medications: 13:38 Drug: HYDROcodone-acetaminophen 5 mg-325 mg 1 tabs {Note: RASS +1.} Route: PO; zb 14:54 Follow up: Response: No adverse reaction; Marked relief of symptoms; Pain is decreased; zb RASS: Alert and Calm (0) Outcome: 14:51 Discharge ordered by MD. pm1 14:55 Discharged to home via wheelchair. zb 14:55 Condition: stable 14:55 Discharge instructions given to patient, family, Instructed on discharge instructions, follow up and referral plans. Demonstrated understanding of instructions, follow-up care. 15:14 Patient left the ED. zb Signatures: Dispatcher [employer] EDIN Richard Cary NP DIE CUTTER pm1 Praveena Walker RN RN ca1 Zaida Garner bp1 Maria Alejandra Ivan RN RN zb Corrections: (The following items were deleted from the chart) 13:02 12:59 Chief complaint: Patient states: Had multiple foot and ankle surgery on the R on ca1 02/26/2020. My R inner ankle is not healing. Been Red, swollen, now it feels hot to touch. Denies fever. ca1 13:03 13:02 LMP 07/30/2020 ca1 ca1
[2020-08-28 15:26] VITALS: TEMP 97.6
[2020-08-28 15:29] VITALS: BP 102/87; O2SAT 100
== END 2020-08-28 15:14 | disposition home or self-care (01) ==
LOC: ER 12:38
DX: M25.571 Pain in right ankle and joints of right foot (principal); I10 Essential (primary) hypertension; F17.210 Nicotine dependence, cigarettes, uncomplicated; Z88.2 Allergy status to sulfonamides
CPT/HCPCS: 36415; 80048; 85025; 99284

== ENCOUNTER 2022-01-18 17:13 | Emergency (ER) | payer OTHER ==
--- OUTSIDE RECORDS SUMMARY | 2022-01-18 17:18 | XMS REPORT | Continuity of Care Document ---
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 8:07:00 ADMISSIONS EVALUATOR, Duration: 2 doses or times, Stop date: Limited # of times Labetalol 0 No 10 mg, Memori a 02-26 Route: l 14:07: IVP, Vlad 00 Q5Min, Dosing Weight 56.7, kg, PRN Elevated BP, Start date: 02/27/20 8:07:00 ADMISSIONS EVALUATOR, Duration: 5 doses or times, Stop date: Limited # of times Acetaminoph 2020-0 No 1,000 mg, M emoria en 02-26 Route: PO, l 14:07: Drug form: Vlad 00 TAB, ONCE, Dosing Weight 56.7, kg, PRN Pain Score 1-3, Start date: 02/27/20 8:07:00 ADMISSIONS EVALUATOR Oxycodone 2020-0 No 5 mg, Memoria Hydrochlori 02-26 Route: PO, l de 5 MG 14:07: Drug form: Herm zeynep Oral Tablet 00 TAB, Q4H, Dosing Weight 56.7, kg, PRN Pain Score 4-6, Start date: 02/27/20 8:07:00 ADMISSIONS EVALUATOR, Duration: 30 day, Stop date: 03/28/20 8:06:00 ADMISSIONS EVALUATOR Hydromorpho 0 No 0.5 mg, Mem oria ne 02-26 Route: l 14:07: IVP, [place] 00 Q5Min, Dosing Weight 56.7, kg, PRN Pain Score 7-10, Start date: 02/27/20 8:07:00 ADMISSIONS EVALUATOR, Duration: 4 doses or times, Stop date: Limited # of times Flumazenil No 0.2 mg, Benny belén 02-26 Route: l 14:07: IVP, PRN, [place] 00 Dosing Weight 56.7, kg, PRN Benzodiaze pine Reversal, Initial dose, Start date: 02/27/20 8:07:00 ADMISSIONS EVALUATOR, Duration: 30 day, Stop date: 03/28/20 8:06:00 ADMISSIONS EVALUATOR Naloxone 0 No 0.4 mg, Memori a 02-26 Route: l 14:07: IVP, Vlad 00 Q2MIN, Dosing Weight 56.7, kg, PRN Narcotic Reversal, Start date: 02/27/20 8:07:00 ADMISSIONS EVALUATOR, Duration: 8 doses or times, Stop date: Limited # of times Lactated No Route: IV, Mem oria Ringers 02-26 Total l Injection 13:28: Volume: Sulema nn IV (ANES) 00 1,000, 1000 mL Start date: 02/27/20 7:28:00 ADMISSIONS EVALUATOR, Stop date: 02/27/20 8:28:00 ADMISSIONS EVALUATOR Lovenox No Notes: Memoria 02-26 (Same as: l 12:00: Lovenox) Vlad 00 Dicyclomine Yes 20 mg = 1 M emoria Hydrochlori 02-26 tab, PO, l de 20 MG 11:49: QID-Before Her ortiz Oral Tablet 00 Meals, # [Bentyl] 28 tab, 0 Refill(s) PlasmaLyte No Notes: Memor ia A PH-7.4 02-26 (Same as: l 1,000 mL 11:39: Isolyte S Herm zeynep 00 PH7.4, Normosol-R PH 7.4, Plasma-Lyt e A ) Potassium No Notes: Memori a Chloride 02-26 (Same as: l 11:39: K-Dur 20) "Do Not Crush" Give with food and full glass of water For patients unable to swallow tablet, dissolve in one half glass of water. Allow about 2 minutes for the tablets to disintegra te. Stir before giving to prepare slurry and administer . Please exclude Patient s with feeding tube less than 14 [place] (Dobhoff, J-tube etc) and pediatric and patients. Lidocaine No Notes: Memori a 0.04 MG/MG 02-26 Apply only l Medicated 09:00: once for Herm zeynep Patch 00 up to 12 hours in a 24-hour period (12 hours on and 12 hours off). (Same as: Aspercreme Lidocaine Patch) "Remove old patch before applicatio n of new patch" Acetaminoph No Notes: Max Memoria en 02-26 acetaminop l 09:00: hen 4000 mg/day (4 gm/day). (Same as: Tylenol Extra Strength) gabapentin No Notes: Memor ia 02-26 (Same as: l 09:00: Neurontin) Methocarbam No Notes: Benny belén ol 02-26 (Same l 09:00: as:Robaxin ) Tramadol No Notes: Not Mem oria 02-26 to exceed l 08:57: 400mg/day. Vlad (Same As: Ultram) Hydroxyzine No Notes: Benny belén 02-26 (Same as: l 08:57: Atarax) Avoid alcohol. Dextrose No 12.5 gm, Memor ia 50% Syringe 02-26 25 mL, l (D50W) 08:55: Route: [place] 00 IVP, Drug Form: INJ, Dosing Weight 56.818, kg, PRN, PRN Blood Glucose Results, Start date: 02/27/20 2:55:00 ADMISSIONS EVALUATOR, Duration: 30 day, Stop date: 03/28/20 2:54:00 ADMISSIONS EVALUATOR, 0 Glucagon No 1 mg, Memoria 02-26 Route: IM, l 08:55: Drug form: Vlad 00 PDR/INJ, PRN, Dosing Weight 56.818, kg, PRN Blood Glucose Results, Start date: 02/27/20 2:55:00 ADMISSIONS EVALUATOR, Duration: 30 day, Stop date: 03/28/20 2:54:00 ADMISSIONS EVALUATOR, 0 Bisacodyl No Notes: Memori a 02-26 (Same As: l 08:55: Dulcolax, Vlad Bisco-Lax) Ondansetron No Notes: Benny belén 02-26 (Same as: l 08:55: Zofran) [place] 00 MEDICATION WASTE Product Size: 4 mg Product Wasted: ___ mg Melatonin No Notes: Memori a 02-26 (Same as: l 08:55: Melatonin) Vlad 00 Robitussin No Notes: Memor ia DM 02-26 (dextromet l 08:55: horphan-gu Vlad aifenesin 10-100mg/5 ml 10 ml oral SOLN ud) (Same as: Robitussin DM) Lubricant No 1 drp, Memori a Eye Drops 02-26 Route: l ophthalmic 08:55: Each [place] solution 00 Affected Eye, Q1H, Drug form: SOLN, PRN Dry Eyes, Start date: 02/27/20 2:55:00 ADMISSIONS EVALUATOR, Duration: 30 day, Stop date: 03/28/20 2:54:00 ADMISSIONS EVALUATOR, 0 Nasal No Notes: Memoria Saline 02-26 (Same as: l 0.65% 08:55: [place], [place] solution 00 Deep Sea Nasal [place]). Benadryl No 1 appl, Memori a Maximum 02-26 Route: l Strength 2% 08:55: TOP, QID, H ermann topical 00 Drug form: cream CRM, PRN as needed for itching, Start date: 02/27/20 2:55:00 ADMISSIONS EVALUATOR, Duration: 30 day, Stop date: 03/28/20 2:54:00 ADMISSIONS EVALUATOR, 0 Tums No Notes: Memoria -09 (Same As: l 08:55: Tums) Vlad Calcium Carbonate 500 mg = 200 mg elemental calcium Dose = mg calcium carbonate ( mg elemental calcium) Benzocaine No Notes: Memor ia 15 MG / 09 Cepacol l Menthol 3.6 08:55: lozenges He rmann MG Lozenge 00 Dispense 1 [Cepacol box = 16 Sore Throat lozenges Pain Relief (Same As: 15/3.6] Cepacol Lozenges) Fluticasone No Notes: Benny belén propionate 02-26 (Same as: l 0.05 08:55: Flonase) Clyde MG/ACTUAT 00 Metered Dose Nasal [place] [Flonase] Lanolin No Notes: Memoria 0.157 MG/MG 02-26 (Same as: l / Menthol 08:55: Calmosepti He rmann 0.0044 00 ne) MG/MG / Petrolatum 0.24 MG/MG / Zinc Oxide 0.206 MG/MG Topical Ointment [Calmosepti ne] Cetirizine No Notes: Memor ia - (Same As: l 08:55: Zyrtec) Vlad 00 Blistex No Notes: Memoria topical 02-26 Same as: l ointment 08:55: Blistex Kishore n 00 Aquaphor No Notes: Memoria - (Same as: l 08:55: Aquaphor) [place] 00 Fentanyl No 100 Memoria 1-09 microgram, l 03:00: Route: IV, [place] 00 ONCALL, Dosing Weight 56.818, kg, Start date: 02/26/20 21:00:00 ADMISSIONS EVALUATOR, Duration: 30 day, Stop date: 03/27/20 20:59:00 ADMISSIONS EVALUATOR Lidocaine No Notes: Memori a Hydrochlori 02-26 Preservati l de 10 MG/ML 02:45: ve free. He rmann Injectable 00 (Same as: Solution Xylocaine MPF) Fentanyl No 25 Memoria 1-09 microgram, l 01:55: Route: [place] 00 IVP, ONCE, Dosing Weight 56.818, kg, Priority: STAT, Start date: 02/26/20 19:55:00 ADMISSIONS EVALUATOR, Stop date: 02/26/20 19:55:00 ADMISSIONS EVALUATOR Morphine 1-0 No 4 mg, Memoria 1-08 Route: l 23:29: IVP, ONCE, Dosing Weight 56.818, kg, Priority: STAT, Start date: 02/26/20 17:29:00 ADMISSIONS EVALUATOR, Stop date: 02/26/20 17:29:00 ADMISSIONS EVALUATOR Ondansetron 1-0 No 4 mg, Memor ia 1-08 Route: l 23:29: IVP, Drug form: INJ, ONCE, Dosing Weight 56.818, kg, Priority: STAT, Start date: 02/26/20 17:29:00 ADMISSIONS EVALUATOR, Stop date: 02/26/20 17:29:00 ADMISSIONS EVALUATOR Fentanyl 1-0 No 25 Memoria 1-08 microgram, l 23:29: Route: [place] 00 IVP, ONCE, Dosing Weight 56.818, kg, Priority: STAT, Start date: 02/26/20 17:29:00 ADMISSIONS EVALUATOR, Stop date: 02/26/20 17:29:00 ADMISSIONS EVALUATOR Iohexol 1-0 No 100 mL, Memoria 1-08 Route: l 22:29: IVP, Drug Form: SOLN, Dosing Weight 56.818, kg, ONCALL, STAT, Start date: 02/26/20 16:29:00 ADMISSIONS EVALUATOR, Duration: 1 doses or times, Dose = 2.2ml/kg, Max dose = 100ml -- "To be infused by Radiology Staff ONLY" phenazopyri 2019- Yes [id number] 200mg Take 1 Univers dine 200 mg 8-10 tablet by ity of tablet 00:00: mouth 3 00 (three) Medical times Branch daily. proMETHazin 2019- Yes [id number] 25mg Take 1 Univers e 25 mg 8-10 tablet by ity of tablet 00:00: mouth [place] 00 every 6 Medical (six) Branch hours as needed for Nausea and Vomiting (N/V). phenazopyri 2019- Yes [id number] 200mg Take 1 Univers dine 200 mg 8-10 tablet by ity of tablet 00:00: mouth 3 [place] 00 (three) Medical times Branch daily. proMETHazin 2019-0 Yes [id number] 25mg Take 1 Univers e 25 mg 8-10 tablet by ity of tablet 00:00: mouth [place] 00 every 6 Medical (six) Branch hours as needed for Nausea and Vomiting (N/V). phenazopyri 2019-0 Yes [id number] 200mg Take 1 Univers dine 200 mg 8-10 tablet by ity of tablet 00:00: mouth 3 [place] 00 (three) Medical times Branch daily. proMETHazin 2019-0 Yes [id number] 25mg Take 1 Univers e 25 mg 8-10 tablet by ity of tablet 00:00: mouth [place] 00 every 6 Medical (six) Branch hours as needed for Nausea and Vomiting (N/V). phenazopyri 2019-0 Yes [id number] 200mg Take 1 Univers dine 200 mg 8-10 tablet by ity of tablet 00:00: mouth 3 [place] 00 (three) Medical times Branch daily. proMETHazin 2019-0 Yes [id number] 25mg Take 1 Univers e 25 mg 8-10 tablet by ity of tablet 00:00: mouth [place] 00 every 6 Medical (six) Branch hours as needed for Nausea and Vomiting (N/V). ondansetron 2018-0 Yes 4mg Take 1 Univ ers (ZOFRAN 5-23 tablet by ity of ODT) 4 mg 00:00: mouth [place] disintegrat 00 every 12 Medi mona ing tablet (twelve) Branc h hours as needed for Nausea and Vomiting (N/V). ondansetron 2018-0 Yes 4mg Take 1 Univ ers (ZOFRAN 5-23 tablet by ity of ODT) 4 mg 00:00: mouth [place] disintegrat 00 every 12 Medi mona ing tablet (twelve) Branc h hours as needed for Nausea and Vomiting (N/V). ondansetron 2018-0 Yes 4mg Take 1 Univ ers (ZOFRAN 5-23 tablet by ity of ODT) 4 mg 00:00: mouth [place] disintegrat 00 every 12 Medi mona ing tablet (twelve) Branc h hours as needed for Nausea and Vomiting (N/V). ondansetron 2018-0 Yes 4mg Take 1 Univ ers (ZOFRAN 5-23 tablet by ity of ODT) 4 mg 00:00: mouth [place] disintegrat 00 every 12 Medi mona ing tablet (twelve) Branc h hours as needed for Nausea and Vomiting (N/V). ondansetron 2016-0 Yes 4mg Take 1 Tab Univers (ZOFRAN, 2-21 by mouth ity of HYDROCHLORI 00:00: every 8 Benjamin as [place],) 4 mg 00 (eight) Medical tablet hours as Branch needed for Nausea and Vomiting (N/V). ondansetron 2016-0 Yes 4mg Take 1 Tab Univers (ZOFRAN, 2-21 by mouth ity of HYDROCHLORI 00:00: every 8 Benjamin as [place],) 4 mg 00 (eight) Medical tablet hours as Branch needed for Nausea and Vomiting (N/V). ondansetron 2016-0 Yes 4mg Take 1 Tab Univers (ZOFRAN, 2-21 by mouth ity of HYDROCHLORI 00:00: every 8 Benjamin as [place],) 4 mg 00 (eight) Medical tablet hours as Branch needed for Nausea and Vomiting (N/V). ondansetron 2016-0 Yes 4mg Take 1 Tab Univers (ZOFRAN, 2-21 by mouth ity of HYDROCHLORI 00:00: every 8 Benjamin as [place],) 4 mg 00 (eight) Medical tablet hours as Branch needed for Nausea and Vomiting (N/V). loratadine 2016-0 Yes 10mg Take 10 mg U nivers (CLARITIN 2-08 by mouth ity of REDITABS) 08:08: daily. [place] 10 mg 16 Medical dissolvable Branch tablet 0 Yes Take by [facility] [employer] VITS 2-08 mouth. ity of W-CA,FE,FA, 08:08: [place] <1MG, 16 Medical ( Branch VITAMIN ORAL) loratadine 2016-0 Yes 10mg Take 10 mg U nivers (CLARITIN 2-08 by mouth ity of REDITABS) 08:08: daily. [place] 10 mg 16 Medical dissolvable Branch tablet 2016-0 Yes Take by [facility] [employer] VITS 2-08 mouth. ity of W-CA,FE,FA, 08:08: [place] <1MG, 16 Medical ( Branch VITAMIN ORAL) loratadine 2016-0 Yes 10mg Take 10 mg U nivers (CLARITIN 2-08 by mouth ity of REDITABS) 08:08: daily. [place] 10 mg 16 Medical dissolvable Branch tablet 2015-0 Yes Take by [facility] VITS 2-08 mouth. ity of W-CA,FE,FA, 08:08: [place] <1MG, 16 Medical ( Branch VITAMIN ORAL) loratadine 2016-0 Yes 10mg Take 10 mg U nivers (CLARITIN 2-08 by mouth ity of REDITABS) 08:08: daily. [place] 10 mg 16 Medical dissolvable Branch tablet 2015-0 Yes Take by [facility] VITS 2-08 mouth. ity of W-CA,FE,FA, 08:08: [place] <1MG, 16 Medical ( Branch VITAMIN ORAL) ondansetron 2016-0 Yes 4mg Take 1 Tab Univers (ZOFRAN, 2-08 by mouth ity of HYDROCHLORI 00:00: every 8 Benjamin as [place],) 4 mg 00 (eight) Medical tablet hours as Branch needed for Nausea and Vomiting (N/V). pantoprazol 2016-0 Yes 40mg Take 1 Tab Univers e 2-08 by mouth ity of (PROTONIX) 00:00: daily. [place] 40 mg EC 00 Medical tablet Branch traMADOL 2016-0 Yes 50mg Take 1 Tab Uni vers (ULTRAM) 50 2-08 by mouth ity of mg tablet 00:00: every 6 [place] 00 (six) Medical hours as Branch needed for Pain (scale 7-10). ondansetron 2016-0 Yes 4mg Take 1 Tab Univers (ZOFRAN, 2-08 by mouth ity of HYDROCHLORI 00:00: every 8 Benjamin as DE,) 4 mg 00 (eight) Medical tablet hours as Branch needed for Nausea and Vomiting (N/V). pantoprazol 2016-0 Yes 40mg Take 1 Tab Univers e 2-08 by mouth ity of (PROTONIX) 00:00: daily. [place] 40 mg EC 00 Medical tablet Branch traMADOL 2016-0 Yes 50mg Take 1 Tab Uni vers (ULTRAM) 50 2-08 by mouth ity of mg tablet 00:00: every 6 [place] 00 (six) Medical hours as Branch needed for Pain (scale 7-10). ondansetron 2016-0 Yes 4mg Take 1 Tab Univers (ZOFRAN, 2-08 by mouth ity of HYDROCHLORI 00:00: every 8 Benjamin as DE,) 4 mg 00 (eight) Medical tablet hours as Branch needed for Nausea and Vomiting (N/V). pantoprazol 0 Yes 40mg Take 1 Tab Univers e 2-08 by mouth ity of (PROTONIX) 00:00: daily. [place] 40 mg EC 00 Medical tablet Branch traMADOL 0 Yes 50mg Take 1 Tab Uni vers (ULTRAM) 50 2-08 by mouth ity of mg tablet 00:00: every 6 [place] 00 (six) Medical hours as Branch needed for Pain (scale 7-10). ondansetron Yes 4mg Take 1 Tab Univers (ZOFRAN, 2-08 by mouth ity of HYDROCHLORI 00:00: every 8 Benjamin as DE,) 4 mg 00 (eight) Medical tablet hours as Branch needed for Nausea and Vomiting (N/V). pantoprazol 0 Yes 40mg Take 1 Tab Univers e 2-08 by mouth ity of (PROTONIX) 00:00: daily. [place] 40 mg EC Medical tablet Branch traMADOL Yes 50mg Take 1 Tab Uni vers (ULTRAM) 50 2-08 by mouth ity of mg tablet 00:00: every 6 [place] 00 (six) Medical hours as Branch needed for Pain (scale 7-10). Cephalexin Cephalexin 2008-0 Yes MELITON Q0.3333D TAKE ONE [place] 500 MG Oral 500 MG Oral 9-25 KERLINE CAPSULE BY Physici Capsule Capsule 00:00: M.D. MOUTH ans 00 THREE TIMES DAILY FOR 10 DAYS Ritalin Ritalin 2007-0 Yes [facility] TABS TABS 5-22 Physici 00:00: ans 00 Zoloft TABS Zoloft TABS 2008-0 Yes [place] 5-22 [facility] 00:00: ans 00 Immunizations Ordered Filled Immunization Date Status Comments [facility] e Immunization Name Name influenza virus 2020-02-28 Completed [facility] vaccine, 21:57:00 inactivated PPD (TB) 2013-11-18 Completed [facility] 00:00:00 [facility] PPD (TB) 2013-11-18 Completed [facility] 00:00:00 [facility] PPD (TB) 2013-11-18 Completed [facility] 00:00:00 [facility] PPD (TB) 2013-11-18 Completed [facility] 00:00:00 [facility] Td 2007-10-01 Completed [facility] 00:00:00 [place] [facility] Td 2007-10-01 Completed [facility] 00:00:00 [place] [facility] Td 2007-10-01 Completed [facility] 00:00:00 [place] [facility] Td 2007-10-01 Completed [facility] 00:00:00 [facility] [place] [facility] Vital Signs Vital Name Observation Time Observation Value Comments Source Systolic blood 2021-06-05 14:56:00 117 mm[Hg] Univer sity of pressure [place] [facility] Diastolic blood 2021-06-05 14:56:00 78 mm[Hg] Unive rsity of pressure [place] [facility] Heart rate 2021-06-05 14:56:00 100 /min [facility] [place] [facility] Body temperature 2021-06-05 14:56:00 37.56 Salome Univ ers[facility] [place] [facility] Respiratory rate 2021-06-05 14:56:00 20 /min [facility] [place] [facility] Body height 2021-06-05 14:56:00 160 cm [facility] [place] [facility] Body weight 2021-06-05 14:56:00 63.504 kg [facility] [place] [facility] BMI 2021-06-05 14:56:00 24.80 kg/m2 [facility] [place] [facility] Oxygen saturation in 2021-06-05 14:56:00 100 /min University of Arterial blood by [place] [employer] Pulse oximetry Branch Systolic blood 2021-02-24 21:25:00 112 mm[Hg] Univer sity of pressure [place] [facility] Diastolic blood 2021-02-24 21:25:00 90 mm[Hg] Unive rsity of pressure [place] [facility] Heart rate 2021-02-24 21:25:00 107 /min [facility] [place] [facility] Respiratory rate 2021-02-24 21:25:00 16 /min Univ ersity [facility] [place] [facility] Oxygen saturation in 2021-02-24 21:25:00 99 /min University of Arterial blood by [place] [employer] Pulse oximetry Branch Body temperature 2021-02-24 19:56:00 36.17 Saolme Univ [facility] [place] [facility] Body weight 2021-02-24 19:56:00 54.885 kg [facility] [place] [facility] BMI 2021-02-24 19:56:00 21.43 kg/m2 [facility] [place] [facility] Systolic (mm Hg) 2021-08-20 16:05:00 Benny rial Vlad Diastolic (mm Hg) 2021-08-20 16:05:00 Mem orial Vlad Respitory Rate 2021-08-20 16:05:00 Memori al [place] Heart Rate 2021-08-20 16:05:00 Memorial Vlad Temperature Oral (F) 2021-08-20 16:05:00 98 F [facility] [place] Systolic (mm Hg) 2021-08-20 15:25:00 Benny rial [place] Diastolic (mm Hg) 2021-08-20 15:25:00 Mem orial [place] Respitory Rate 2021-08-20 15:25:00 Memori al [place] Systolic (mm Hg) 2021-08-20 13:54:00 Benny rial [place] Diastolic (mm Hg) 2021-08-20 13:54:00 Mem orial Vlad Respitory Rate 2021-08-20 13:54:00 Memori al [place] Heart Rate 2021-08-20 13:54:00 [facility] [place] Heart Rate 2021-08-20 12:51:00 [facility] [place] Temperature Oral (F) 2021-08-20 12:51:00 98.3 F [facility] [place] Respitory Rate 2020-03-08 22:09:00 Memori al [place] Systolic (mm Hg) 2020-03-08 22:09:00 Benny rial [place] Diastolic (mm Hg) 2020-03-08 22:09:00 Mem orial [place] Respitory Rate 2020-03-08 21:45:00 Memori al Vlad Systolic (mm Hg) 2020-03-08 21:45:00 Benny rial [place] Diastolic (mm Hg) 2020-03-08 21:45:00 Mem orial [place] Respitory Rate 2020-03-08 21:30:00 Memori al Vlad Systolic (mm Hg) 2020-03-08 21:30:00 Benny rial [place] Diastolic (mm Hg) 2020-03-08 21:30:00 Mem orial [place] Height 2020-03-08 15:45:00 160.02 cm Memorial Vlad Weight 2020-03-08 15:45:00 [facility] [place] BMI Calculated 2020-03-08 15:45:00 Memori al [place] Heart Rate 2020-03-08 15:45:00 Memorial Vlad Height 2020-03-04 19:05:00 157.48 cm Memorial Vlad Weight 2020-03-04 19:05:00 Memorial Vlad BMI Calculated 2020-03-04 19:05:00 Memori al Vlad Temperature Oral (F) 2020-02-28 18:07:00 98.0 F [facility] [place] Heart Rate 2020-02-28 18:07:00 [facility] Vlad Respitory Rate 2020-02-28 18:07:00 Memori al Vlad Systolic (mm Hg) 2020-02-28 18:07:00 Benny rial Vlad Diastolic (mm Hg) 2020-02-28 18:07:00 Mem orial Vlad Temperature Oral (F) 2020-02-28 13:12:00 98.2 F Memorial Vlad Heart Rate 2020-02-28 13:12:00 [facility] Vlad Respitory Rate 2020-02-28 13:12:00 Memori al [place] Systolic (mm Hg) 2020-02-28 13:12:00 Benny rial [place] Diastolic (mm Hg) 2020-02-28 13:12:00 Mem orial [place] Temperature Oral (F) 2020-02-28 09:43:00 98.5 F [facility] Vlad Heart Rate 2020-02-28 09:43:00 [facility] [place] Respitory Rate 2020-02-28 09:43:00 Memori al Vlad Systolic (mm Hg) 2020-02-28 09:43:00 Benny rial Vlad Diastolic (mm Hg) 2020-02-28 09:43:00 Mem orial [place] Height 2020-02-27 10:53:00 160.02 cm Memorial Vlad Weight 2020-02-27 10:53:00 [facility] [place] BMI Calculated 2020-02-27 10:53:00 Memori al [place] Height 2020-02-26 19:47:00 160.02 cm Memorial Vlad BMI Calculated 2020-02-26 19:47:00 Memori al [place] Weight 2020-02-26 19:47:00 [facility] [place] Procedures Procedure Date / Time Performing Clinician Source Performed MEDICATION CORRESPONDENCE 2021-06-21 05:01:00 Doctor Unasslucio, [facility] [place] [facility] [place] [facility] ABDOMEN PELVIS W 2021-06-05 16:05:59 Jenn Villarreal [facility] CONTRAST [facility] Branch LIPASE 2021-06-05 15:32:00 Jenn Villarreal [facility] COMP. METABOLIC PANEL 2021-06-05 15:32:00 Jenn Villarreal [facility] ([id number]) [facility] CBC WITH DIFF 2021-06-05 15:32:00 Jenn Villarreal [facility] URINALYSIS 2021-06-05 15:32:00 Jenn Villarreal [facility] CONSENT/REFUSAL FOR 2021-06-05 14:44:38 Doctor Unassigned, [facility] DIAGNOSIS AND TREATMENT [place] [facility] XR ANKLE 3+ VW RIGHT 2021-02-24 20:36:48 Pelon Navarro [facility] [U] XRAY ANKLE MIN 3 VWS 2020-05-03 00:00:00 [facility] RIGHT [id number] [U] XRAY TIBIA FIBULA 2 2020-05-03 00:00:00 [facility] VWS LEFT [id number] Post Op Promis 29 Survey 2020-04-15 00:00:00 [facility] Amputation 1998-02-18 00:00:00 [facility] External fixation [facility] Plan of Care Planned Activity Planned Date Details Comments Source Future Scheduled Test 2021-11-18 00:00:00 IMM Influenza [facility] Seasonal (>/= 19 yrs) [code = IMM Influenza Seasonal (>/= 19 yrs)] Future Scheduled Test 2013 00:00:00 Screening for [facility] malignant neoplasm of cervix (procedure) [code = 585857658] Future Scheduled Test 1992 00:00:00 COVID-19 Vaccine (#1) [facility] [code = COVID-19 Vaccine (#1)] Encounters Start End Encounter Admission Attending Care Care Encounter Source Date/Time Date/Time Type Type Clinicians Facility Department ID 2021-08-20 2021-08-20 Emergency [facility] [id number] Memoria 12:45:55 16:21:[address] 2021-08-20 2021-08-20 Outpatient Alecia, [facility] [id number] 07:45:55 11:21:00 Susi R 01 2021-08-20 2021-08-20 Emergency E ALECIA, [facility] [id number] Memoria 07:45:00 11:21:00 SUSI l [facility] 2021-06-21 2021-06-21 Orders Doctor SAM [id number] Univers 00:00:00 00:00:00 Only Unassigned, MICKIE [id number] ity of [place] [facility] [id number] [place] as [id number] [address] 2021-06-05 2021-06-05 Emergency X [facility] ERT [id number] Univers 10:13:00 14:39:00 JENN correa [facility] 2021-06-05 2021-06-05 Emergency [facility] [id number] Univers 10:13:00 14:39:00 Jenn [place] [id number] ity of [place] [id number] [facility] [id number] [address] 2021-06-05 2021-06-05 Orders Doctor SAM [id number] Univers 00:00:00 00:00:00 Only Unassigned, MICKIE [id number] ity of [place] [facility] [id number] [place] as [id number] [address] 2021-02-24 2021-02-24 Emergency X [facility] ERT [id number] Univers 13:57:00 15:55:00 PELON correa [facility] 2021-02-24 2021-02-24 Emergency [facility] [id number] Univers 13:57:00 15:55:00 Pelon UNDER[place] [id number] i ty of [place] [id number] [facility] [id number] [address] 2020-09-16 2020-09-16 [facility] [id number] Univers 02:27:00 02:27:00 MEGHAN correa [facility] 2020-08-19 2020-08-19 Emergency [facility] [id number] 20:28:00 20:51:00 Kandi Underwood [id number] [place] [id number] [place] [id number] [facility] 2020-08-19 2020-08-19 Emergency X [facility] ERT [id number] [employer] 20:28:00 20:28:00 KANDI correa [facility] 2020-06-19 2020-06-20 Emergency [facility] [id number] [employer] 20:37:00 00:12:00 [facility] 2020-06-19 2020-06-20 Emergency [facility] [id number] 20:37:00 00:12:00 Maira Charlene Underwood [id number] [place] [id number] [place] [id number] 2020-04-14 2020-04-14 Appointmen [facility] 7 [id number] [place] 09:30:00 09:30:00 t; SIENA, [facility] VINCENT PEmilieAEmilie [facility] 2020-03-17 2020-03-17 Appointmen SANTOSH CAMPBELL [facility] [id number] [place] 08:45:00 08:45:00 t; JOSE CAMPBELL, Ph ysici Caroline PUENTE M.D. 2020-03-08 2020-03-09 [facility] [id number]00 05:59:[address] 2020-03-08 2020-03-08 Outpatient Richi [facility] [id number] 05:22:00 23:59:00 Jose 00 2020-03-08 2020-03-08 [facility] [address] [facility] 05:22:00 23:59:00 JOSE 2020-03-08 2020-03-08 AppointSANTOSH Royal [facility] [id number] [place] 07:30:00 07:30:00 t; JOSE CAMPBELL, Ph Caroline Reyes M.D. 2020-02-26 2020-02-28 Inpatient [facility] [id number] [facility] 19:23:00 23:00:00 r Clyde 69 l [facility] 2020-02-27 2020-02-28 Inpatient E JOHNATHAN, [facility] MED [id number] [facility] 02:20:00 17:00:00 TIAGO 2020-02-26 2020-02-28 Outpatient Johnathan, [facility] [id number] [id number] 13:23:00 17:00:00 Tiago Zimmerman 2020-02-26 2020-02-28 Outpatient Johnathan, [facility] [id number] [id number] 13:23:00 17:00:00 Tiago Hammer Erasmo 2020-02-27 2020-02-27 AppointSANTOSH Royal [facility] [id number] [place] 07:30:00 07:30:00 t; JOSE CAMPBELL, Ph Caroline Reyes M.D. 2020-02-26 2020-02-26 Outpatient JULIUS, [facility] MAGDY [address] [facility] 12:55:00 23:59:00 [place] 2018-09-27 2018-09-27 Emergency [facility] [id number] 15:27:09 17:14:00 Enoc [place] [id number] [place] [id number] [place] [id number] 2017-10-31 2017-10-31 Outpatient [facility] [id number] [place] 15:00:36 15:00:36 Health 2017-10-31 2017-10-31 Emergency [facility] [id number] [place] 10:36:00 10:36:00 Health Results Test Description Test Time Test Comments Results Result Comments Source COMP. METABOLIC PANEL (65058) 2021-06-05 16:16:08 Test Item Value Reference Range Interpretation Comme nts NA (test code = 9106689223) 137 mmol/L 135-145 K (test code = 7608045621) 4.4 mmol/L 3.5-5.0 CL (test code = 1230138304) 104 mmol/L 98-108 CO2 TOTAL (test code = 0312708972) 25 mmol/L 23-31 AGAP (test code = 4695825695) 2-16 BUN (test code = 2615760587) 7 mg/dL 7-23 GLUCOSE (test code = 3802443273) 97 mg/dL 70-110 CREATININE (test code = 0.69 mg/dL 0.50-1.04 1314323796) TOTAL BILI (test code = 0.4 mg/dL 0.1-1.1 3034334045) CALCIUM (test code = 8134364697) 8.0 mg/dL 8.6-10.6 L T PROTEIN (test code = 7239459342) 6.7 g/dL 6.3-8.2 ALBUMIN (test code = 1466394068) 3.7 g/dL 3.5-5.0 ALK PHOS (test code = 0997121045) 61 U/L 34-122 ALTv (test code = 1742-6) 18 U/L 5-35 AST(SGOT) (test code = 0479297272) 24 U/L 13-40 eGFR (test code = 2212558033) mL/min/1.73m2 BLAYNE (test code = BLAYNE) Association of Glomerular Filtration Rate (GFR) and Staging of Kidney Disease* + +-------- + ------+| GFR (mL/min/1.73 m2) ?| With Kidney Damage ?| ?Without Kidney Damage+ +-- + +| ?>90 ?| ?Stage one ?| ? Normal ?+ +------- + -------+| ?60-89 ?| ?Stage two ?| ? Decreased GFR ? + +-------- + ------+| ?30-59 ?| ?Stage three ?| ? Stage three ? + +-------- + ------+| ?15-29 ?| ?Stage four ? | ? Stage four ?+ +------- + -------+| ?<15 (or dialysis) ? ?| ?Stage five ? | ? Stage five ?+ +------- + -------+ *Each stage assumes the associated GFR level has been in effect for at least three months. ?Stages 1 to 5, with or without kidney disease, indicate chronic kidney disease. Notes: Determination of stages one and two (with eGFR >59mL/min/1.73 m2) requires estimation of kidney damage for at least three months as defined by structural or functional abnormalities of the kidney, manifested by either:Pathological abnormalities or Markers of kidney damage (including abnormalities in the composition of the blood or urine or abnormalities in imaging tests). Lab Interpretation (test code = Abnormal 04118-5) [facility] 16:16[facility]08 Test Item Value Reference Range Interpretation Comments LIPASE (test code = 7795526598) 31 U/L 0-220 Lab Interpretation (test code = Normal 69535-8) [facility] WITH [id number] 16:00:05 Test Item Value Reference Range Interpretation Comments WBC (test code = See_Comment [Automated 3590-2) message] The sy stem which generated this result transmitted reference range : 4.30 - 11.10 10*3/?L. The reference range was not used to interpret this result as normal/abnormal . RBC (test code = See_Comment [Automated 999-8) message] The sy stem which generated this result transmitted reference range : 3.93 - 5.25 10*6/?L. The reference range was not used to interpret this result as normal/abnormal . HGB (test code = 12.4 g/dL 11.6-15.0 718-7) HCT (test code = 38.2 % 35.7-45.2 4544-3) MCV (test code = 88.0 fL 80.6-95.5 787-2) MCH (test code = 28.6 pg 25.9-32.8 785-6) MCHC (test code = 32.5 g/dL 31.6-35.1 786-4) RDW-SD (test code = 50.6 fL 39.0-49.9 H 99393-1) RDW-CV (test code = 15.4 % 12.0-15.5 788-0) PLT (test code = See_Comment [Automated 777-3) message] The sy stem which generated this result transmitted reference range : 166 - 358 10*3/ ?L. The reference r morales was not used to interpret this result as normal/abnormal . MPV (test code = 10.6 fL 9.5-12.9 36289-3) NRBC/100 WBC (test See_Comment [Automat ed code = 2865733572) message] The system which generated this result transmitted reference range : 0.0 - 10.0 /100 WBCs. The refer ence range was not u sed to interpret th is result as normal/abnormal . NRBC x10^3 (test code <0.01 See_Comment [Auto mated = 4462402766) message] The s ystem which generated this result transmitted reference range : 10*3/?L. The reference range was not used to interpret this result as normal/abnormal . GRAN MAT (NEUT) % 68.5 % (test code = 770-8) IMM GRAN % (test code 0.40 % = 0815822456) LYMPH % (test code = 14.8 % 736-9) MONO % (test code = 12.1 % 5905-5) EOS % (test code = 4.0 % 713-8) BASO % (test code = 0.2 % 706-2) GRAN MAT x10^3(ANC) 7.22 10*3/uL 1.88-7.09 H (test code = 6375625041) IMM GRAN x10^3 (test 0.04 10*3/uL 0.00-0.06 code = 6045114502) LYMPH x10^3 (test code 1.56 10*3/uL 1.32-3.29 = 731-0) MONO x10^3 (test code 1.27 10*3/uL 0.33-0.92 H = 742-7) EOS x10^3 (test code = 0.42 10*3/uL 0.03-0.39 H 711-2) BASO x10^3 (test code <0.03 0.01-0.07 = 704-7) Lab Interpretation Abnormal (test code = 94159-1) [facility][U] XRAY TIBIA FIBULA 2 VWS LEFT [id number] 2020-04-14 11:01:00Images acquired, not reported on this accession number.[facility][U] XRAY ANKLE MIN 3 VWS RIGHT [id number] 10:19:00Images acquired, not reported on this accession number.[facility] 2020-03-08 15:44:00 Test Item Value Reference Range Interpretation Comments ABO/Rh (test code = ABO/Rh) O POS [facility] [id number] 15:44:00 Test Item Value Reference Range Interpretation Comments Antibody Scrn (test Negative (03/08/20 9:44 code = Antibody Scrn) AM) [facility]ucvoyuRMNPMMHOURKMA1560-93-54 15:44:00 Test Item Value Reference Range Interpretation Comments hCG Tot (test code = hCG Tot) no gt [facility] CenterFrvjvbpNWOUDLPONM1439-67-43 12:57:00 Test Item Value Reference Range Interpretation Comments Coronavirus (COVID-19) Not Detected (03/08/20 ANA LAURA (test code = 6:57 AM) Coronavirus (COVID-19) ANA LAURA) [facility] [id number] 10:56:00 Test Item Value Reference Range Interpretation Comments Glucose Lvl (test code = Glucose Lvl) 74 70-99 [facility] [id number] 10:56:00 Test Item Value Reference Range Interpretation Comments BUN (test code = BUN) 4 7-22 [facility] KQNNL5235-31-87 10:56:00 Test Item Value Reference Range Interpretation Comments Creatinine Lvl (test code = Creatinine 0.74 0.50-1.40 Lvl) [facility] [id number] 10:56:00 Test Item Value Reference Range Interpretation Comments Sodium Lvl (test code = Sodium Lvl) 138 135-145 [facility] AUITO3844-36-00 10:56:00 Test Item Value Reference Range Interpretation Comments Potassium Lvl (test code = Potassium 4.2 3.5-5.1 Lvl) [facility]2021-01-10 10:56:00 Test Item Value Reference Range Interpretation Comments Chloride Lvl (test code = Chloride Lvl) 106 95-109 [facility] [id number] 10:56:00 Test Item Value Reference Range Interpretation Comments CO2 (test code = CO2) 24 24-32 [place] 476841-01-10 10:56:00 Test Item Value Reference Range Interpretation Comments Calcium Lvl (test code = Calcium Lvl) 8.1 8.5-10.5 [facility]2021-01-10 10:56:00 Test Item Value Reference Range Interpretation Comments AGAP (test code = AGAP) 12.2 10.0-20.0 [place] 476841-01-10 10:56:00 Test Item Value Reference Range Interpretation Comments eGFR (test code = eGFR) 127 [facility]FtpjenuGKGYXCIZFD2666-10-97 10:56:00 Test Item Value Reference Range Interpretation Comments Segs (test code = Segs) 62.7 45.0-75.0 [place] 687161-01-10 10:56:00 Test Item Value Reference Range Interpretation Comments Lymphocytes (test code = Lymphocytes) 23.3 20.0-40.0 [place] 687161-01-10 10:56:00 Test Item Value Reference Range Interpretation Comments Monocytes (test code = Monocytes) 13.4 2.0-12.0 [facility] NortheastGyqygawQLVMXBQDEP5290-02-57 10:56:00 Test Item Value Reference Range Interpretation Comments Eosinophils (test code = 0.4 See_Comment [A utomated message] The Eosinophils) system which nerated this result tra nsmitted reference range : <=4.0. The reference r morales was not used to int erpret this result as normal/abnormal . [facility] NortheastZbxjtbaARNGFZJMXP6947-50-02 10:56:00 Test Item Value Reference Range Interpretation Comments Basophils (test code = 0.2 See_Comment [Aut omated message] The Basophils) system which ge nerated this result tra nsmitted reference range : <=1.0. The reference r morales was not used to int erpret this result as normal/abnormal . [facility] NortheastNweatgpBTSYSWHAWP3187-45-65 10:56:00 Test Item Value Reference Range Interpretation Comments Neutrophils # (test code = Neutrophils 5.7 1.5-8.1 #) [facility] NortheastGssggjlHZWXFGTJQI3953-45-68 10:56:00 Test Item Value Reference Range Interpretation Comments Lymphocytes # (test code = Lymphocytes 2.1 1.0-5.5 #) [place] 687161-01-10 10:56:00 Test Item Value Reference Range Interpretation Comments Monocytes # (test code 1.2 See_Comment [Aut omated message] The = Monocytes #) system which generated this result tra nsmitted reference range : <=0.8. The reference r morales was not used to int erpret this result as normal/abnormal . [facility] NortheastUhlybmgFRDLCXQCEZ5895-82-75 10:56:00 Test Item Value Reference Range Interpretation Comments WBC (test code = WBC) 9.1 3.7-10.4 [facility] NortheastYifrclsGJCNJILBKF3770-72-93 10:56:00 Test Item Value Reference Range Interpretation Comments RBC (test code = RBC) 3.66 4.20-5.40 [facility] NortheastKlgqdraQMGHXVGLWW8240-50-66 10:56:00 Test Item Value Reference Range Interpretation Comments Hgb (test code = Hgb) 11.7 12.0-16.0 [facility] NortheastQgipwpvBWPWZNJKEP1400-78-14 10:56:00 Test Item Value Reference Range Interpretation Comments Hct (test code = Hct) 34.3 36.0-48.0 [facility] NortheastXrqamceKDIOAZUAAR8107-88-22 10:56:00 Test Item Value Reference Range Interpretation Comments MCV (test code = MCV) 93.7 80.0-98.0 [facility] NortheastRhlntanIHMHOXGMQJ2966-67-76 10:56:00 Test Item Value Reference Range Interpretation Comments MCH (test code = MCH) 32.1 pg 27.0-31.0 [facility] NortheastYyqremtTHAPSPMMNU2092-10-56 10:56:00 Test Item Value Reference Range Interpretation Comments MCHC (test code = MCHC) 34.2 32.0-36.0 [facility] NortheastIsxhqibPDREXJCVQE6837-63-15 10:56:00 Test Item Value Reference Range Interpretation Comments RDW (test code = RDW) 13.3 11.5-14.5 [facility] NortheastBvhwfdcHMXCSZXNFR0697-47-47 10:56:00 Test Item Value Reference Range Interpretation Comments Platelet (test code = Platelet) 182 133-450 [facility] NortheastYnjztbbHJWGNBREML9697-68-18 10:56:00 Test Item Value Reference Range Interpretation Comments MPV (test code = MPV) 9.0 7.4-10.4 [facility]2021-01-09 10:44:00 Test Item Value Reference Range Interpretation Comments Glucose Lvl (test code = Glucose Lvl) 82 70-99 [place] 476841-01-09 10:44:00 Test Item Value Reference Range Interpretation Comments BUN (test code = BUN) 5 7-22 [place] 476841-01-09 10:44:00 Test Item Value Reference Range Interpretation Comments Creatinine Lvl (test code = Creatinine 0.68 0.50-1.40 Lvl) [place] 476841-01-09 10:44:00 Test Item Value Reference Range Interpretation Comments Sodium Lvl (test code = Sodium Lvl) 138 135-145 [place] 476841-01-09 10:44:00 Test Item Value Reference Range Interpretation Comments Potassium Lvl (test code = Potassium 3.8 3.5-5.1 Lvl) [facility]2021-01-09 10:44:00 Test Item Value Reference Range Interpretation Comments Chloride Lvl (test code = Chloride Lvl) 111 95-109 [facility]2021-01-09 10:44:00 Test Item Value Reference Range Interpretation Comments CO2 (test code = CO2) 20 24-32 [place] 476841-01-09 10:44:00 Test Item Value Reference Range Interpretation Comments Calcium Lvl (test code = Calcium Lvl) 7.5 8.5-10.5 [facility]2021-01-09 10:44:00 Test Item Value Reference Range Interpretation Comments AGAP (test code = AGAP) 10.8 10.0-20.0 [place] 476841-01-09 10:44:00 Test Item Value Reference Range Interpretation Comments eGFR (test code = eGFR) 139 [facility] NortheastYotvuriOADANDWCTV1606-64-53 10:44:00 Test Item Value Reference Range Interpretation Comments WBC (test code = WBC) 8.1 3.7-10.4 [place] 687161-01-09 10:44:00 Test Item Value Reference Range Interpretation Comments RBC (test code = RBC) 3.89 4.20-5.40 [place] 687161-01-09 10:44:00 Test Item Value Reference Range Interpretation Comments Hgb (test code = Hgb) 12.4 12.0-16.0 [place] 687161-01-09 10:44:00 Test Item Value Reference Range Interpretation Comments Hct (test code = Hct) 37.1 36.0-48.0 [facility] NortheastRauwdgpRSRUEDGNKD8462-94-47 10:44:00 Test Item Value Reference Range Interpretation Comments MCV (test code = MCV) 95.4 80.0-98.0 [facility] NortheastRaphaftUHGAOSIXWY7755-73-42 10:44:00 Test Item Value Reference Range Interpretation Comments MCH (test code = MCH) 32.0 pg 27.0-31.0 [facility] NortheastLusmqgdKAUZLVHCQM4182-51-92 10:44:00 Test Item Value Reference Range Interpretation Comments MCHC (test code = MCHC) 33.5 32.0-36.0 [facility] NortheastLhfqsspFKOSSJSKUN6219-62-63 10:44:00 Test Item Value Reference Range Interpretation Comments RDW (test code = RDW) 13.1 11.5-14.5 [facility] NortheastSyqaeapUNRJSJEFVC9152-30-97 10:44:00 Test Item Value Reference Range Interpretation Comments Platelet (test code = Platelet) 198 133-450 [facility] NortheastYlucygnOFQKTVCJNL6835-75-28 10:44:00 Test Item Value Reference Range Interpretation Comments MPV (test code = MPV) 9.0 7.4-10.4 [facility] NortheastXcbwgnoKARVKQAEWX0432-85-83 10:44:00 Test Item Value Reference Range Interpretation Comments Segs (test code = Segs) 67.5 45.0-75.0 [facility] NortheastRojmasuYIBPXURQIJ2575-22-75 10:44:00 Test Item Value Reference Range Interpretation Comments Lymphocytes (test code = Lymphocytes) 16.3 20.0-40.0 [facility] NortheastNlckpzyFTHXRPUPVJ6949-72-88 10:44:00 Test Item Value Reference Range Interpretation Comments Monocytes (test code = Monocytes) 15.3 2.0-12.0 [facility] NortheastPrwlkrsBKXHCQCKND7049-27-96 10:44:00 Test Item Value Reference Range Interpretation Comments Eosinophils (test code = 0.8 See_Comment [A utomated message] The Eosinophils) system which ge nerated this result tra nsmitted reference range : <=4.0. The reference r morales was not used to int erpret this result as normal/abnormal . [facility] NortheastZdbycibFJFHYGUSJI9583-41-66 10:44:00 Test Item Value Reference Range Interpretation Comments Basophils (test code = 0.1 See_Comment [Aut omated message] The Basophils) system which ge nerated this result tra nsmitted reference range : <=1.0. The reference r morales was not used to int erpret this result as normal/abnormal . [facility] NortheastBttowbfTQWOMYUCBO4809-30-26 10:44:00 Test Item Value Reference Range Interpretation Comments Neutrophils # (test code = Neutrophils 5.4 1.5-8.1 #) [facility] NortheastHarjvduPPFVYZNBLW9343-80-57 10:44:00 Test Item Value Reference Range Interpretation Comments Lymphocytes # (test code = Lymphocytes 1.3 1.0-5.5 #) [facility] NortheastNyfgyawNJDSHSQBEX4240-87-62 10:44:00 Test Item Value Reference Range Interpretation Comments Monocytes # (test code 1.2 See_Comment [Aut omated message] The = Monocytes #) system which generated this result tra nsmitted reference range : <=0.8. The reference r morales was not used to int erpret this result as normal/abnormal . [facility] NortheastXssdhczPNAKPGAYTF5751-34-83 10:44:00 Test Item Value Reference Range Interpretation Comments Eosinophils # (test code 0.1 See_Comment [A utomated message] The = Eosinophils #) system whic h generated this result tra nsmitted reference range : <=0.5. The reference r morales was not used to int erpret this result as normal/abnormal . [facility] CenterCtkgqpfFNYYPJLUSB5530-60-88 02:50:00 Test Item Value Reference Range Interpretation Comments Coronavirus (COVID-19) Not Detected (02/26/20 ANA LAURA (test code = 8:50 PM) Coronavirus (COVID-19) ANA LAURA) [facility] QKJPJLM6490-46-87 20:14:00 Test Item Value Reference Range Interpretation Comments ABO/Rh (test code = ABO/Rh) O POS [facility] XBCXRIP9025-74-41 20:14:00 Test Item Value Reference Range Interpretation Comments Antibody Scrn (test Negative (02/26/20 2:14 code = Antibody Scrn) PM) [facility] PointeAppCastCARDIAC IRWRBNL7429-00-49 19:40:00 Test Item Value Reference Range Interpretation Comments Troponin-I (test code no gt See_Comment [Auto mated message] The = Troponin-I) system which g enerated this result transmit eze reference range : <=0.40. The reference r morales was not used to interpr et this result as lauren l/abnormal. [facility]2021-01-08 19:40:00 Test Item Value Reference Range Interpretation Comments Glucose Lvl (test code = Glucose Lvl) 103 70-99 [facility]2021-01-08 19:40:00 Test Item Value Reference Range Interpretation Comments BUN (test code = BUN) 5 7-22 [facility]2021-01-08 19:40:00 Test Item Value Reference Range Interpretation Comments Creatinine Lvl (test code = Creatinine 0.91 0.50-1.40 Lvl) [facility]2021-01-08 19:40:00 Test Item Value Reference Range Interpretation Comments Sodium Lvl (test code = Sodium Lvl) 141 135-145 [place] 476841-01-08 19:40:00 Test Item Value Reference Range Interpretation Comments Potassium Lvl (test code = Potassium 3.2 3.5-5.1 Lvl) [facility]2021-01-08 19:40:00 Test Item Value Reference Range Interpretation Comments Chloride Lvl (test code = Chloride Lvl) 113 95-109 [facility]2021-01-08 19:40:00 Test Item Value Reference Range Interpretation Comments CO2 (test code = CO2) 22 24-32 [facility]2021-01-08 19:40:00 Test Item Value Reference Range Interpretation Comments Calcium Lvl (test code = Calcium Lvl) 7.8 8.5-10.5 [facility]2021-01-08 19:40:00 Test Item Value Reference Range Interpretation Comments AGAP (test code = AGAP) 9.2 10.0-20.0 [facility]2021-01-08 19:40:00 Test Item Value Reference Range Interpretation Comments eGFR (test code = eGFR) 45 [facility]2021-01-08 19:40:00 Test Item Value Reference Range Interpretation Comments Lactic Acid Lvl (test code = Lactic 1.7 0.5-2.2 Acid Lvl) [facility] CenterSpwwaxcGFKZKBOZFYQUD2047-50-92 19:40:00 Test Item Value Reference Range Interpretation Comments hCG Tot (test code = hCG Tot) no gt [facility] NortheastOvigpuzJWHATLSNRU0891-86-51 19:40:00 Test Item Value Reference Range Interpretation Comments WBC X 10x3 (test code = WBC X 10x3) 11.9 3.7-10.4 [facility] NortheastQfvwtfuFFFPQHXEOF9595-57-03 19:40:00 Test Item Value Reference Range Interpretation Comments RBC X 10x6 (test code = RBC X 10x6) 4.26 4.20-5.40 [facility] NortheastQlqjiwnMCFUXSETIR1026-78-43 19:40:00 Test Item Value Reference Range Interpretation Comments Hgb (test code = Hgb) 13.2 12.0-16.0 [facility] NortheastTyapoccHVMELFYOZW7720-31-71 19:40:00 Test Item Value Reference Range Interpretation Comments Hct (test code = Hct) 40.3 36.0-48.0 [facility] NortheastRvqhnifVFKWCNXRVL5604-67-32 19:40:00 Test Item Value Reference Range Interpretation Comments MCV (test code = MCV) 94.7 80.0-98.0 [facility] NortheastQeaurhjKLMABYFXRT9666-59-93 19:40:00 Test Item Value Reference Range Interpretation Comments MCH (test code = MCH) 30.9 pg 27.0-31.0 [facility] NortheastWoyvsnnMZVZUNMJJC3595-73-41 19:40:00 Test Item Value Reference Range Interpretation Comments MCHC (test code = MCHC) 32.7 32.0-36.0 [facility] NortheastIujggakKLYWICEKKY2384-23-40 19:40:00 Test Item Value Reference Range Interpretation Comments RDW (test code = RDW) 13.3 11.5-14.5 [facility] NortheastOylizgaUXCJQWAKNV3234-00-57 19:40:00 Test Item Value Reference Range Interpretation Comments Platelet (test code = Platelet) 240 133-450 [facility] NortheastZbikhojJPPMNMZUWD2651-56-67 19:40:00 Test Item Value Reference Range Interpretation Comments MPV (test code = MPV) 8.1 7.4-10.4 [facility] NortheastUtmidliEAPFIWCTPZ1303-38-37 19:40:00 Test Item Value Reference Range Interpretation Comments PT (test code = PT) 13.3 s 12.0-14.7 [facility] NortheastNxtaaqtKMTYDRAHAS8231-31-75 19:40:00 Test Item Value Reference Range Interpretation Comments INR (test code = INR) 1.01 1 0.85-1.17 [place] 687161-01-08 19:40:00 Test Item Value Reference Range Interpretation Comments PTT (test code = PTT) 32.7 s 22.9-35.8 [place] 687161-01-08 19:40:00 Test Item Value Reference Range Interpretation Comments ACT (TEG) Rapid (test code = ACT (TEG) 113 s 86-118 Rapid) [place] 687161-01-08 19:40:00 Test Item Value Reference Range Interpretation Comments Split Point Rapid (test code = Split 0.5 min Point Rapid) [place] 687161-01-08 19:40:00 Test Item Value Reference Range Interpretation Comments R-time Rapid (test code = R-time 0.7 min 0.4-0.7 Rapid) [place] 687161-01-08 19:40:00 Test Item Value Reference Range Interpretation Comments K-time Rapid (test code = K-time 1.5 min 0.6-2.3 Rapid) [place] 687161-01-08 19:40:00 Test Item Value Reference Range Interpretation Comments Angle Rapid (test code = Angle 72 degrees 64-80 Rapid) [facility] NortheastLyafnkhCRMSIDQVXC3623-45-69 19:40:00 Test Item Value Reference Range Interpretation Comments Max Amplitude Rapid (test code = Max 65 mm 52-71 Amplitude Rapid) [facility] NortheastPfxdcswINUSZAJSAI9769-94-85 19:40:00 Test Item Value Reference Range Interpretation Comments G-value Rapid (test code = G-value 9.2 5.0-11.6 Rapid) [place] [place] [id number] 19:40:00 Test Item Value Reference Range Interpretation Comments Estimated % Lysis Rapid 0.8 See_Comment [Au tomated message] The (test code = Estimated syste m which generated % Lysis Rapid) this result t ransmitted reference range : <=7.5. The reference r morales was not used to int erpret this result as normal/abnormal . [id number] 19:40:00 Test Item Value Reference Range Interpretation Comments Segs (test code = Segs) 56.5 45.0-75.0 [place] [id number] 19:40:00 Test Item Value Reference Range Interpretation Comments Lymphocytes (test code = Lymphocytes) 30.7 20.0-40.0 [id number] 19:40:00 Test Item Value Reference Range Interpretation Comments Monocytes (test code = Monocytes) 8.8 2.0-12.0 [facility] N[id number] 19:40:00 Test Item Value Reference Range Interpretation Comments Eosinophils (test code = 3.6 See_Comment [A utomated message] The Eosinophils) system which ge nerated this result tra nsmitted reference range : <=4.0. The reference r morales was not used to int erpret this result as normal/abnormal . [id number] 19:40:00 Test Item Value Reference Range Interpretation Comments Basophils (test code = 0.4 See_Comment [Aut omated message] The Basophils) system which ge nerated this result tra nsmitted reference range : <=1.0. The reference r morales was not used to int erpret this result as normal/abnormal . [facility] [id number] 19:40:00 Test Item Value Reference Range Interpretation Comments Neutrophils # (test code = Neutrophils 6.7 1.5-8.1 #) [id number] 19:40:00 Test Item Value Reference Range Interpretation Comments Lymphocytes # (test code = Lymphocytes 3.7 1.0-5.5 #) [facility] [id number] 19:40:00 Test Item Value Reference Range Interpretation Comments Monocytes # (test code 1.1 See_Comment [Aut omated message] The = Monocytes #) system which generated this result tra nsmitted reference range : <=0.8. The reference r morales was not used to int erpret this result as normal/abnormal . [facility] [id number] 19:40:00 Test Item Value Reference Range Interpretation Comments Eosinophils # (test code 0.4 See_Comment [A utomated message] The = Eosinophils #) system whic h generated this result tra nsmitted reference range : <=0.5. The reference r morales was not used to int erpret this result as normal/abnormal . [facility]
[2022-01-18 17:37] LABS: Urine Blood Negative (Negative); Urine Glucose Negative (Negative); Urine Protein Negative (Negative); Urine Specific Gravity >=1.030 (1.005-1.030)
--- NOTE | 2022-01-18 18:00 | RAD REPORT ---
EXAM DESCRIPTION: RAD - Tib Fib Right - 01/18/2022 5:50 pm CLINICAL HISTORY: open wound Pain and swelling COMPARISON: <Comparisons> FINDINGS: Hardware is in place distal fibula and tibia. Soft tissue prominence is seen adjacent to t he medial malleolus. No underlying osteomyelitis or hardware loosening seen.
[2022-01-18] MEDS ORDERED: ACETAMINOPHEN 500 MG TAB ONE (18:02)
[2022-01-18 18:07] LABS: Absolute Lymphocytes (CBC) 1.7 K/uL (0.7-4.9); Hematocrit 39.7 % (36.0-45.0); Lymphocytes % 23.7 % (15.3-44.8); MCV 88.4 fL (80-100); MPV 8.2 fL (7.6-11.3); RBC Red Blood Cell Count 4.49 M/uL (3.86-4.86)
[2022-01-18 18:09] LABS: C-Reactive Protein 3.2 mg/L (<3.00); Potassium 3.9 mmol/L (3.5-5.1)
[2022-01-18 18:19] LABS: Urine Specific Gravity/Preg >1.030 (1.005-1.030)
--- NOTE | 2022-01-18 18:53 | EDPHYS ---
Physician Documentation [facility] Name: Nia Wills Age: 31 yrs Sex: Female : 1990 Arrival Date: 01/18/2022 Time: 17:07 Bed 7 Private MD: ED Physician Andrea Márquez HPI: 01/18 17:20 This 31 yrs old Black Female presents to ER via EMS with complaints of Wound Check, cp Suicidal Ideation. 17:20 The patient presents with chronic wound to medial aspect right ankle/lower leg. cp 17:20 Associated signs and symptoms: Pertinent positives: pain, drainage from wound. The cp patient presents to the emergency department with suicide ideation. Onset: The symptoms/episode began/occurred today. Patient brought to ED in custody of law enforcement for evaluation of chronic wound to left lower leg/ankle and for suicidal ideation. 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 - Social history:: Smoking status: Patient denies any tobacco usage or history of. Patient/guardian denies using alcohol, street drugs, IV drugs, tobacco products. ROS: 17:25 Constitutional: Negative for body aches, chills, fever, poor PO intake. cp 17:25 Eyes: Negative for injury, pain, redness, and discharge. cp 17:25 Cardiovascular: Negative for chest pain. 17:25 Respiratory: Negative for cough, shortness of breath, wheezing. 17:25 Abdomen/GI: Negative for abdominal pain, nausea, vomiting, and diarrhea. 17:25 Skin: Positive for of the medial aspect right ankle /lower leg, chronic wound. 17:25 Psych: Positive for suicidal ideation. 17:25 All other systems are negative. Exam: 17:30 Constitutional: The patient appears in no acute distress, alert, awake, non-toxic, well cp developed, well nourished. 17:30 Head/Face: Normocephalic, atraumatic. cp 17:30 Eyes: Periorbital structures: appear normal, Conjunctiva: normal, no exudate, no injection, Lids and lashes: appear normal, bilaterally. 17:30 ENT: External ear(s): are unremarkable, Nose: is normal, Mouth: Lips: moist, Oral mucosa: moist, Posterior pharynx: Airway: no evidence of obstruction, patent. 17:30 Chest/axilla: Inspection: normal. 17:30 Cardiovascular: Rate: normal, Rhythm: regular. 17:30 Respiratory: the patient does not display signs of respiratory distress, Respirations: normal, no use of accessory muscles, no retractions, labored breathing, is not present, Breath sounds: are clear throughout, no decreased breath sounds. 17:30 Musculoskeletal/extremity: Extremities: grossly normal except: noted in the left foot: partial amputation noted that appears well healed, noted in the medial aspect right ankle/lower leg: pain, chronic appears wound with scant clear drainage, minimal swelling, no erythema. 17:30 Psych: Behavior/mood is cooperative, Affect is animated, Patient having thoughts of cp suicide. Judgement / Insight is normal. Delusions/hallucinations are not present. Vital Signs: 17:15 BP 131 / 99; Pulse 92; Resp 17; Temp 98.7; Pulse Ox 100% ; Weight 72.57 kg; Height 5 jl7 ft. 3 in. (160.02 cm); Pain 10/10; 20:08 BP 128 / 72; Pulse 88; Resp 16; Pulse Ox 99% on R/A; kl 17:15 Body Mass Index 28.34 (72.57 kg, 160.02 cm) jl7 MDM: 17:09 Patient medically screened. pm1 18:52 Data reviewed: vital signs, nurses notes, lab test result(s), radiologic studies, plain cp films, ultrasound. 18:52 Counseling: I had a detailed discussion with the patient and/or guardian regarding: the cp historical points, exam findings, and any diagnostic results supporting the discharge/admit diagnosis, lab results, radiology results, the need for outpatient follow up, wound care, to return to the emergency department if symptoms worsen or persist or if there are any questions or concerns that arise at home. Response to treatment: the patient's symptoms have markedly improved after treatment, and as a result, I will discharge patient. 01/18 17:11 Order name: CBC with Diff; Complete Time: 18:44 cp 01/18 17:11 Order name: BMP; Complete Time: 18:19 cp 01/18 18:42 Interpretation: Normal except: CL 110; ANION GAP 4.9; GFR 86. cp 01/18 17:11 Order name: Wound Culture cp 01/18 17:11 Order name: CRP; Complete Time: 18:19 cp 01/18 17:11 Order name: ESR; Complete Time: 18:44 cp 01/18 17:37 Order name: Urine Dipstick-Ancillary; Complete Time: 18:19 EDMS 01/18 17:11 Order name: XRAY Tib Fib RIGHT; Complete Time: 18:19 cp 01/18 18:43 Interpretation: Report reviewed. cp 01/18 17:40 Order name: Test, Serum; Complete Time: 18:19 bp 01/18 18:14 Order name: Urine --Ancillary (enter results); Complete Time: 18:19 em1 01/18 18:48 Order name: Extremity Venous Uni Ltd; Complete Time: 18:59 EDMS 01/18 18:48 Order name: Lower Extremity Artery Uni Ltd; Complete Time: 18:59 EDMS 01/18 19:00 Interpretation: Report reviewed. cp 01/18 17:11 Order name: IV; Complete Time: 17:56 cp 01/18 17:11 Order name: Urine Dipstick-Ancillary (obtain specimen); Complete Time: 17:56 cp 01/18 17:11 Order name: Urine Test (obtain specimen); Complete Time: 17:56 cp 01/18 18:43 Order name: Wound dressing; Complete Time: 19:27 cp Administered Medications: 18:02 Drug: Tylenol 1000 mg Route: PO; jl7 19:26 Drug: Clindamycin 600 mg Route: IVPB; Infused Over: 30 mins; Site: right antecubital; jl7 19:26 Drug: Doxycycline 100 mg Route: PO; jl7 Disposition Summary: 01/18/22 18:52 Discharge Ordered Location: Home cp Problem: an ongoing problem cp Symptoms: have improved cp Condition: Stable cp Diagnosis - Cellulitis of right lower limb - right ankle cp Followup: cp - With: Seth Avendano MD - When: 2 - 3 days - Reason: Wound Recheck Discharge Instructions: - Discharge Summary Sheet cp - Cellulitis, Adult cp Forms: - Medication Reconciliation Form cp - Thank You Letter cp - Antibiotic Education cp - Prescription Opioid Use cp Prescriptions: - Clindamycin HCl 300 mg Oral Capsule - take 1 capsule by ORAL route every 6 hours for 10 days; 40 capsule; Refills: 0, cp Product Selection Permitted - Ibuprofen 800 mg Oral Tablet - take 1 tablet by ORAL route every 8 hours As needed take with food; 30 tablet; cp Refills: 0, Product Selection Permitted - Doxycycline Hyclate 100 mg Oral Tablet - take 1 tablet by ORAL route every 12 hours; 20 tablet; Refills: 0, Product cp Selection Permitted Addendum: 01/21/2022 08:01 Co-signature as Attending Physician, Andrea Márquez MD I agree with the assessment and c allen plan of care. Signatures: Dispatcher [employer] EDAndrea Knight MD MD cha Page, Corey, PA PA cp Richard Cary, OCEAN LIFEGUARD OCEAN LIFEGUARD pm1 Carl Willard RN RN jl7 Corrections: (The following items were deleted from the chart) 01/18 18:47 17:14 Extremity Venous Uni Ltd+US.RAD.BRZ ordered. EDMS EDMS 18:47 17:15 Lower Extremity Artery Uni Ltd+US.RAD.BRZ ordered. EDMS EDMS
--- NOTE | 2022-01-18 18:53 | ER ---
Nurse's Notes [facility] Name: Nia Wills Age: 31 yrs Sex: Female : 1990 Arrival Date: 01/18/2022 Time: 17:07 Bed 7 Private MD: Diagnosis: Cellulitis of right lower limb-right ankle Presentation: 01/18 17:15 Chief complaint: EMS states: Toned out to PD for wound check, pt sees wound care jl7 weekly for ongoing treatment, pt stated "I just want to kill myself. If you take me back to halfway I'll just smash my head.". Coronavirus screen: At this time, the client does not indicate any symptoms associated with coronavirus-19. Ebola Screen: No symptoms or risks identified at this time. Initial Sepsis Screen: Does the patient meet any 2 criteria? No. Patient's initial sepsis screen is negative. Does the patient have a suspected source of infection? No. Patient's initial sepsis screen is negative. Risk Assessment: Do you want to hurt yourself or someone else? Other: Pt states "If I go back to halfway I'll just smash my head.". Onset of symptoms is unknown. Care prior to arrival: None. 17:15 Method Of Arrival: EMS: [facility] 17:15 Acuity: FERNANDO 3 jl7 Triage Assessment: 17:15 General: Appears in no apparent distress. uncomfortable, unkempt, Behavior is jl7 cooperative, anxious, crying, restless. Pain: Complains of pain in right leg Pain currently is 10 out of 10 on a pain scale. Neuro: [place]ango Agitation-Sedation Scale (RASS): +1 Restless Level of Consciousness is awake, alert, obeys commands, Oriented to person, place, time, situation. Cardiovascular: Patient's skin is warm and dry. Respiratory: Airway is patent Respiratory effort is even, unlabored, Respiratory pattern is regular, symmetrical. Derm: Skin is pink, warm \\T\\ dry. Wound noted right ankle Wound is dark around the edges, drainage in the middle of wound. Pt reports wound is from tissue not adhering to metal in leg. 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 - Social history:: Smoking status: Patient denies any tobacco usage or history of. Patient/guardian denies using alcohol, street drugs, IV drugs, tobacco products. Screenin:45 Abuse screen: Denies threats or abuse. Denies injuries from another. Nutritional jl7 screening: No deficits noted. Tuberculosis screening: No symptoms or risk factors identified. Fall Risk IV access (20 points). Total Ge Fall Scale indicates No Risk (0-24 pts). Assessment: 17:45 Reassessment: Pt reports "I'm 5 months ." UPT reports negative, serum jl7 drawn and sent to lab. 20:08 Reassessment: No changes from previously documented assessment. Patient and/or family kl updated on plan of care and expected duration. Pain level reassessed. Patient is alert, oriented x 3, equal unlabored respirations, skin warm/dry/pink. Vital Signs: 17:15 BP 131 / 99; Pulse 92; Resp 17; Temp 98.7; Pulse Ox 100% ; Weight 72.57 kg; Height 5 jl7 ft. 3 in. (160.02 cm); Pain 10/10; 20:08 BP 128 / 72; Pulse 88; Resp 16; Pulse Ox 99% on R/A; kl 17:15 Body Mass Index 28.34 (72.57 kg, 160.02 cm) jl7 ED Course: 17:07 Patient arrived in ED. jl7 17:09 Richard Cary NP is PHCP. pm1 17:09 Andrea Márquez MD is Attending Physician. pm1 17:09 PHCP role handed off by Richard Cary NP cp 17:09 Andrea Ramirez PA is PHCP. cp 17:15 Arm band placed on right wrist. jl7 17:30 Initial lab(s) drawn, by va, sent to lab. Urine collected: straight cath specimen, jl7 clear. Inserted saline lock: 20 gauge in right antecubital area, using aseptic technique. Blood collected. 17:45 Patient has correct armband on for positive identification. Bed in low position. Call jl7 light in reach. Side rails up X 1. [place] [employer] at bedside. 17:50 Triage completed. jl7 17:51 XRAY Tib Fib RIGHT In Process Unspecified. EDMS 17:56 Carl Willard, RN is Primary Nurse. jl7 18:48 Extremity Venous Uni Ltd In Process Unspecified. EDMS 18:48 Lower Extremity Artery Uni Ltd In Process Unspecified. EDMS 18:52 Seth Avendano MD is Referral Physician. cp 20:08 No provider procedures requiring assistance completed. IV discontinued, intact, kl bleeding controlled, No redness/swelling at site. Pressure dressing applied. Administered Medications: 18:02 Drug: Tylenol 1000 mg Route: PO; jl7 19:26 Drug: Clindamycin 600 mg Route: IVPB; Infused Over: 30 mins; Site: right antecubital; jl7 19:26 Drug: Doxycycline 100 mg Route: PO; jl7 Medication: 17:45 VIS not applicable for this client. jl7 Outcome: 18:52 Discharge ordered by . cp 20:08 Discharged to Law Enforcement 20:08 Condition: stable 20:08 Discharge instructions given to patient, police, Instructed on discharge instructions, follow up and referral plans. medication usage, wound care, Demonstrated understanding of instructions, follow-up care, medications, wound care, Prescriptions given X 2. 20:09 Patient left the ED. kl Addendum: 01/22/2022 09:48 Addendum: Culture Results: Positive wound culture. No further action required. Other: s s No change to discharge plans/ medication per Dr. Márquez. . Bacteria is resistant to, has intermediate sensitivity, or is not tested against prescribed antibiotics. Report given to VALENTIN for further evaluation and then to screen printing cloth spreader for follow up with patient. Signatures: Dispatcher [employer] Licha Laguerre RN RN kl Smirch, Shelby, RN RN ss Page, Corey, PA PA Richard Ha, FLAVIO HUB BORER pm1 Carl Willard, SOPHIE RN jl7 Corrections: (The following items were deleted from the chart) 01/18 19:17 17:15 Risk Assessment: Do you want to hurt yourself or someone else? Patient reports no jl7 desire to harm self or others. jl7
--- NOTE | 2022-01-18 18:56 | RAD REPORT ---
EXAM DESCRIPTION: US - Lower Extremity Artery Uni Ltd - 01/18/2022 6:46 pm CLINICAL HISTORY: PAIN COMPARISON: No comparisons FINDINGS: Grayscale, color and power Doppler were performed of the right lower extremity arterial sy stem. Right common femoral artery, superficial femoral artery are triphasic. Right popliteal artery and dis kary vessels largely monophasic. No complete occlusion is identified. IMPRESSION: Mild infrapopliteal peripheral vascular disease is present.
--- NOTE | 2022-01-18 18:56 | RAD REPORT ---
EXAM DESCRIPTION: US - Extremity Venous Uni Ltd - 01/18/2022 6:46 pm CLINICAL HISTORY: PAIN Leg swelling and edema. COMPARISON: No comparisons FINDINGS: Right lower extremity venous system was interrogated with Doppler technique. Normal flow, compressibility and augmentation was noted. There is no DVT present. IMPRESSION: No evidence of right lower extremity deep venous thrombosis.
[2022-01-18] MEDS ORDERED: DOXYCYCLINE 100 MG CAP PO ONE (19:24)
[2022-01-18] MEDS ORDERED: CLINDAMYCIN 600MG/D5W 600 MG/50 ML BAG IV ONE (19:24)
[2022-01-18 20:52] VITALS: TEMP 98.7
[2022-01-18 20:53] VITALS: BP 128/72; O2SAT 99
== END 2022-01-18 20:09 | disposition home or self-care (01) ==
LOC: ER 17:13
DX: L03.115 Cellulitis of right lower limb (principal); I10 Essential (primary) hypertension; Z88.2 Allergy status to sulfonamides
CPT/HCPCS: 36415; 80048; 81003; 81025; 84703; 85025; 85652; 86140; 87070; 87077; 87186; 87205; 93926; 93971; 96374; 99284

== ENCOUNTER 2023-05-10 14:12 | Inpatient (IN) | payer BC, OTHER ==
--- NOTE | 2023-05-10 14:58 | RAD REPORT ---
EXAM DESCRIPTION: RAD - Ankle Right 3 View - 05/10/2023 2:34 pm CLINICAL HISTORY: PAIN COMPARISON: Ankle Right 3 View dated 08/28/2020 FINDINGS: Hardware is present distal tibia and fibula. Moderate soft tissue swelling along the media l aspect of the ankle. There is no evidence hardware complication currently.
[2023-05-10 15:06] LABS: Absolute Basophils 0.1 K/uL (0-0.5); Absolute Eosinophils 0.4 K/uL (0-0.5); Absolute Lymphocytes (CBC) 1.9 K/uL (0.7-4.9); Absolute Monocytes 0.8 K/uL (0.1-1.3); Absolute Neutrophil 3.5 K/uL (1.8-8.0); Basophils % 1.5 % (0-1.3); Hematocrit 33.9 % (36.0-45.0); Hemoglobin 11.4 g/dL (12.0-15.0); MCH 29.8 pg (27.0-35.0); MCHC 33.5 g/dL (32.0-36.0); MCV 88.8 fL (80-100); MPV 8.1 fL (7.6-11.3); Monocytes % 11.7 % (3.3-12.3); Neutrophils % 52.8 % (41.7-73.7); Nucleated Red Blood Cells % 0.1 % (0-0); Platelets 289 thou/uL (152-406); RBC Red Blood Cell Count 3.82 M/uL (3.86-4.86); Red Cell Distribution Width 13.5 % (12.1-15.2)
[2023-05-10 15:09] LABS: PT Prothrombin Time 10.4 SECONDS (9.5-12.5); PTT, Activated Partial Thromb 37.1 SECONDS (24.3-36.9); Protime INR 0.94
[2023-05-10 15:21] LABS: Albumin/Globulin Ratio 0.8 (1.1-1.8); Anion Gap 8.2 mEq/L (5.0-15.0); Bilirubin Total 0.1 mg/dL (0.2-1.0); Globulin 3.9 g/dL (2.3-3.5); Potassium 4.2 mEq/L (3.5-5.1); Protein, Total 6.9 g/dL (6.4-8.2)
[2023-05-10] MEDS ORDERED: NA CHLORIDE 0.9% 250 ML ONE (15:40)
[2023-05-10] MEDS ORDERED: VANCOMYCIN 1 GM/VIAL ONE (15:40)
--- NOTE | 2023-05-10 15:41 | EDPHYS ---
Physician Documentation [facility] Name: Nia Wills Age: 32 yrs Sex: Female : 1990 Arrival Date: 05/10/2023 Time: 14:12 Bed 10 Private MD: ED Physician Reece Kulkarni HPI: 05/09 15:54 This 32 yrs old Black Female presents to ER via EMS with complaints of ankle pain/wound kb check. 16:26 Patient is a 32-year-old female who presents for pain, swelling, drainage and redness kb to right ankle. States she had a surgery to repair a fracture in 2020. States that area never fully healed and she has had infections on and off since then. Reports this time started last month, has taken 2 rounds of antibiotics and started clindamycin 2 days ago but the pain was worse today and it is now draining which has not happened in the past. Denies fever.. 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 - Social history:: Smoking status: Patient denies any tobacco usage or history of. ROS: 15:53 Constitutional: As per HPI kb Exam: 15:53 Constitutional: This is a well developed, well nourished patient who is awake, alert, kb and in no acute distress. Head/Face: Normocephalic, atraumatic. ENT: Moist Mucous membranes Cardiovascular: Regular rate Respiratory: Respirations even and unlabored. No increased work of breathing. Talking in full sentences Abdomen/GI: Soft, non-tender. No distention MS/ Extremity: Pulses equal, no cyanosis. Neurovascular intact. Full, normal range of motion. Neuro: Awake and alert, GCS 15, oriented to person, place, time, and situation. Moves all extremities. Normal gait. 15:53 Skin: cellulitis, that is mild, on the right ankle, with purulent drainage, Vital Signs: 14:24 BP 112 / 77; Pulse 78; Resp 15; Temp 97.4; Pulse Ox 99% on R/A; ko1 16:54 BP 132 / 74; Pulse 82; Resp 16; Pulse Ox 100% ; ko1 MDM: 14:20 Patient medically screened. kb 15:38 Differential diagnosis: cellulitis, abscess, nonhealing wound. Data reviewed: vital kb signs, nurses notes. Consideration of Admission/Observation Patient was admitted/placed on observation. Escalation of care including admission/observation considered. Management of patient was discussed with the following: Hospitalist: Hospitalist team, pt accepted for admission under Dr Yap. Historians other than the Patient: EMS: [facility]. Counseling: I had a detailed discussion with the patient and/or guardian regarding the historical points, exam findings, and any diagnostic results supporting the discharge/admit diagnosis, lab results, radiology results, the need for further work-up and treatment in the hospital. 05/09 14:23 Order name: Blood Culture Adult (2) kb 05/09 14:23 Order name: CBC with Diff; Complete Time: 15:10 kb 05/09 14:23 Order name: CMP; Complete Time: 15:25 kb 05/09 14:23 Order name: Lactate w/ 2H reflex if indic.; Complete Time: 15:25 kb 05/09 14:23 Order name: Protime (+inr); Complete Time: 15:10 kb 05/09 14:23 Order name: Ptt, Activated; Complete Time: 15:10 kb 05/09 14:23 Order name: Ankle Right 3 View XRAY; Complete Time: 15:03 kb 05/09 14:23 Order name: EKG; Complete Time: 14:23 kb 05/09 14:23 Order name: Accucheck; Complete Time: 15:38 kb 05/09 14:23 Order name: Cardiac monitoring; Complete Time: 14:24 kb 05/09 14:23 Order name: EKG - Nurse/Tech; Complete Time: 15:15 kb 05/09 14:23 Order name: IV Saline Lock - Large Bore; Complete Time: 14:53 kb 05/09 14:23 Order name: Labs collected and sent; Complete Time: 14:53 kb 05/09 14:23 Order name: O2 Per Protocol; Complete Time: 14:24 kb 05/09 14:23 Order name: O2 Sat Monitoring; Complete Time: 14:24 kb 05/09 14:23 Order name: Vital Signs; Complete Time: 14:53 kb Administered Medications: 15:42 Drug: vancoMYCIN IVPB 1 grams IVPB once over 2 hrs Route: IVPB; Infused Over: 2 hrs; ko1 Site: right antecubital; 17:34 Follow up: Response: No adverse reaction; IV Status: Completed infusion; IV Intake: ko1 250ml Disposition: 17:49 Co-signature as Attending Physician, Reece Kulkarni MD I reviewed the patient's care rn provided by the Advanced Practice Provider and agree with the diagnosis and treatment plan. Disposition Summary: 05/10/23 15:41 Hospitalization Ordered Notes: Hospitalization Status: Inpatient Admission kb Provider: Jose Yap Location: Telemetry/[facility] (Inpatient) kb Condition: Stable kb Problem: an ongoing problem kb Symptoms: are unchanged kb Bed/Room Type: Standard Room Assignment: 419(05/10/23 16:34) eb Diagnosis - Cellulitis of right lower limb - failed outpatient treatment kb Forms: - Medication Reconciliation Form kb - SBAR form kb - Leadership Thank You Letter kb Signatures: Dispatcher [employer] Malissa Fox, ROTARY ENGINE ASSEMBLER-C ROTARY ENGINE ASSEMBLER-Ckb Reece Kulkarni MD MD rn Botello, Elizabeth eb Oliver, Kathy, RN RN ko1 Corrections: (The following items were deleted from the chart) 16:34 15:41 kb eb
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
[2023-05-10 18:04] VITALS: BMI 28.5
[2023-05-10] MEDS: MIRTAZAPINE 15 MG TAB PO SCH (21:06)
[2023-05-11] MEDS ORDERED: ZOLPIDEM TARTRATE 5 MG TABLET PO PRN (01:04)
[2023-05-11] MEDS ORDERED: ONDANSETRON 4 MG/2 ML VIAL IV PRN (01:04)
[2023-05-11] MEDS ORDERED: ACETAMINOPHEN 500 MG TAB PO PRN (01:04)
[2023-05-11] MEDS: CEFEPIME 2 GM in NA CHLORIDE 0.9% 100 ML IV SCH (01:48)
[2023-05-11] MEDS: LACTOBACILLUS/ACIDOPHILUS TAB PO SCH (01:49)
[2023-05-11 04:34] LABS: Absolute Eosinophils 0.4 K/uL (0-0.5); Absolute Lymphocytes (CBC) 1.6 K/uL (0.7-4.9); Absolute Neutrophil 4.9 K/uL (1.8-8.0); Basophils % 0.4 % (0-1.3); Eosinophils % 5.1 % (0-4.4); Hematocrit 33.6 % (36.0-45.0); Hemoglobin 11.4 g/dL (12.0-15.0); Lymphocytes % 20.1 % (15.3-44.8); MCH 30.2 pg (27.0-35.0); MCHC 33.8 g/dL (32.0-36.0); MCV 89.3 fL (80-100); MPV 8.3 fL (7.6-11.3); Monocytes % 12.2 % (3.3-12.3); Neutrophils % 62.2 % (41.7-73.7); Platelets 281 thou/uL (152-406); RBC Red Blood Cell Count 3.76 M/uL (3.86-4.86); Red Cell Distribution Width 13.5 % (12.1-15.2)
[2023-05-11 04:45] LABS: Anion Gap 8.3 mEq/L (5.0-15.0); Potassium 4.3 mEq/L (3.5-5.1)
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
[2023-05-11] MEDS: HYDROCODONE/APAP 5/325 MG TAB PO PRN (09:54)
[2023-05-11] MEDS: OLANZapine 10 MG TABLET PO SCH (09:55)
[2023-05-12 04:59] LABS: Absolute Eosinophils 0.4 K/uL (0-0.5); Absolute Lymphocytes (CBC) 1.7 K/uL (0.7-4.9); Absolute Monocytes 0.9 K/uL (0.1-1.3); Absolute Neutrophil 3.6 K/uL (1.8-8.0); Basophils % 0.3 % (0-1.3); Eosinophils % 5.4 % (0-4.4); Hematocrit 33.3 % (36.0-45.0); Hemoglobin 11.4 g/dL (12.0-15.0); Lymphocytes % 25.8 % (15.3-44.8); MCH 30.6 pg (27.0-35.0); MCHC 34.2 g/dL (32.0-36.0); MCV 89.4 fL (80-100); MPV 8.7 fL (7.6-11.3); Neutrophils % 54.5 % (41.7-73.7); Nucleated Red Blood Cells % 0.2 % (0-0); Platelets 269 thou/uL (152-406); RBC Red Blood Cell Count 3.73 M/uL (3.86-4.86); Red Cell Distribution Width 13.7 % (12.1-15.2)
[2023-05-12 05:25] LABS: Anion Gap 8.1 mEq/L (5.0-15.0); Potassium 4.1 mEq/L (3.5-5.1)
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
[2023-05-12 10:50] LABS: Specific Gravity 1.012 (1.005-1.030); Sqamous Epithelial <5 /HPF (None Seen); Urine Bacteria None Seen /HPF (<20); Urine Bilirubin NEGATIVE (Negative); Urine Blood Negative (Negative); Urine Clarity Turbid (Clear); Urine Color Colorless (Yellow); Urine Culture Reflex Order REFLEXED; Urine Glucose NEGATIVE (Negative); Urine Ketones NEGATIVE (Negative); Urine Microscopic Reflex YN ORDER UMIC; Urine Nitrite NEGATIVE (Negative); Urine Protein NEGATIVE (Negative); Urine Urobilinogen Normal (Normal); Urine pH 6.5 (5.0-7.0)
[2023-05-13 07:04] LABS: Absolute Basophils 0.1 K/uL (0-0.5); Absolute Eosinophils 0.3 K/uL (0-0.5); Absolute Lymphocytes (CBC) 1.6 K/uL (0.7-4.9); Absolute Neutrophil 4.3 K/uL (1.8-8.0); Basophils % 1.1 % (0-1.3); Eosinophils % 4.6 % (0-4.4); Hematocrit 34.3 % (36.0-45.0); Hemoglobin 11.5 g/dL (12.0-15.0); Lymphocytes % 22.3 % (15.3-44.8); MCHC 33.6 g/dL (32.0-36.0); MCV 89.3 fL (80-100); MPV 8.5 fL (7.6-11.3); Monocytes % 13.6 % (3.3-12.3); Neutrophils % 58.4 % (41.7-73.7); Nucleated Red Blood Cells % 0.1 % (0-0); Platelets 264 thou/uL (152-406); RBC Red Blood Cell Count 3.84 M/uL (3.86-4.86); Red Cell Distribution Width 13.5 % (12.1-15.2)
[2023-05-13 07:44] LABS: Anion Gap 8.1 mEq/L (5.0-15.0); Potassium 4.1 mEq/L (3.5-5.1)
[2023-05-13 07:45] LABS: Albumin 2.6 g/dL (3.4-5.0); Magnesium 1.9 mg/dL (1.6-2.4); Phosphorus 3.7 mg/dL (2.5-4.9)
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
--- NOTE | 2023-05-13 09:10 | RAD REPORT ---
EXAM DESCRIPTION: MRI - Ankle Right Wo Cont - 05/13/2023 8:39 am CLINICAL HISTORY: r/o osteomyelitis Pain and swelling COMPARISON: Ankle Right 3 View dated 05/10/2023 FINDINGS: Blooming artifact is present from hardware in the ankle. Calcaneal spurs are present, smal l. Plantar fascia and Achilles tendon appear unremarkable. Flexor and extensor tendons of the ankle a re intact. Within the moderate limitations of blooming artifact which is present, no finding to sugge st osteomyelitis. No fracture seen. No dislocation. No soft tissue mass or hematoma. IMPRESSION: Blooming artifact degrades image quality without findings to confirm osteomyelitis.
[2023-05-13 10:27] VITALS: O2SAT 96
--- NOTE | 2023-05-13 10:54 | P.PN ---
Subjective Date of Service: 05/13/23 Chief Complaint: cellulitis L) ankle Pt is resting comfortably in bed. She had MRI of right ankle this am. Pt is tolerating iv abx. No other complaints. Review of Systems General: Unremarkable Eyes: Unremarkable ENT: Unremarkable Respiratory: Unremarkable Cardiovascular: Unremarkable Gastrointestinal: Unremarkable Genitourinary: Unremarkable Musculoskeletal: Unremarkable Integumentary: Lesions Neurological: Unremarkable Lymphatics: Unremarkable Physical Examination - Vital Signs Temperature: 97 F Blood Pressure: 119/56 Pulse: 104 Respirations: 18 Pulse Ox (%): 99 - Physical Exam General: Alert, In no apparent distress, Oriented x3 HEENT: Atraumatic, Normocephalic, PERRLA Neck: Supple, 2+ carotid pulse no bruit Respiratory: Clear to auscultation bilaterally, Normal air movement Cardiovascular: No edema, Normal pulses, Regular rate/rhythm, Normal S1 S2 Capillary refill: <2 Seconds Gastrointestinal: Normal bowel sounds, Soft and benign, Non-distended Musculoskeletal: No clubbing, No swelling Integumentary: No rashes, Skin breakdown Neurological: Normal gait, Normal speech, Normal strength at 5/5 x4 extr, Normal tone, Sensation intact Lymphatics: No axilla or inguinal lymphadenopathy Assessment And Plan - Plan RLE ankle cellulitis / Wound: Will continue iv vanc and cefepime. Pt failed outpt therapy with abx. Will f/u blood and wound cultures. Consulted Ortho and ID. Continue prn pain med. MRI right ankle is negative for osteomyelitis. Anxiety/depression: Continue Remeron, Zyprexa Microcytic anemia: Hgb is 11.5. Monitor H/H Acute cystitis: Will continue cefepime and f/u urine cx. Code: full DVT ppx: SCD Disposition: Pending hospital course.
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
[2023-05-13 13:07] VITALS: BP 110/59; TEMP 97.1
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
--- NOTE | 2023-05-13 14:26 | EKG ---
Test Date: 2023-05-10 Test Time: 13:59:54 Precision Lens Polisher: CATIA MEASUREMENT RESULTS: Intervals: Rate: 97 WV: 142 QRSD: 82 QT: 358 QTc: 454 [place]: P: 83 WV: 142 QRS: 79 T: 69 INTERPRETIVE STATEMENTS: Normal sinus rhythm Normal ECG No previous ECG available for comparison Electronically Signed On 05-13-23 14:16:40 CDT by Tejinder Hartley
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
== END 2023-05-13 13:48 | disposition left against medical advice (07) | DRG 603 ==
LOC: ER 14:12 → ERHOLD 15:50 → 4TH 16:40
PROVIDERS: ADMIT Hospitalist; ATTEND Hospitalist
DX: L03.115 Cellulitis of right lower limb (principal); N30.00 Acute cystitis without hematuria; I10 Essential (primary) hypertension; F41.9 Anxiety disorder, unspecified; F32.A Depression, unspecified; D50.9 Iron deficiency anemia, unspecified; F17.200 Nicotine dependence, unspecified, uncomplicated; Z88.2 Allergy status to sulfonamides; Z79.899 Other long term (current) drug therapy; Z89.432 Acquired absence of left foot
CPT/HCPCS: 36415; 80048; 80053; 80069; 81001; 83605; 83735; 85025; 85610; 85730; 87040; 87086; 87088; 93005; 96365; 96366; 99285; J0692; J7050